=== PATIENT | female | born 2000 | race Asian ===

== ENCOUNTER 2021-01-14 23:32 | Emergency (ER) | payer OTHER, SELFPAY ==
[2021-01-14 23:59] VITALS: BP 140/80; PULSE 78; RESP 18; TEMP 37.4; O2SAT 100; BMI 28.1
--- NOTE | 2021-01-15 00:23 | ED.NAVMDI ---
HPI - Nausea/Vomiting/Diarrhea General Chief complaint: Nausea/Vomiting/Diarrhea Stated complaint: DEHYDRATION/VOMITING Time Seen by Provider: 01/14/21 23:46 Source: patient Mode of arrival: ambulatory History of Present Illness HPI Narrative: This is a 20-year-old female who presents with nausea and vomiting since this morning upon awakening. She is concerned that she probably had contaminated food yesterday, but does endorse she has smoked marijuana in been seen here in this emergency department multiple times for similar presentation. In addition, patient sources she has also used cocaine. She denies any diarrhea, fevers but states she has had chills during the vomiting and denies any urinary pain/burning/frequency. Related Data Previous Rx's Medication Instructions Recorded ondansetron HCl [Zofran] 4 mg PO Q6H PRN 2 Days #7 tab 01/15/21 Allergies Allergy/AdvReac Type Severity Reaction Status Date / Time No Known Allergies Allergy Verified 09/14/20 13:26 Review of Systems Review of Systems: Pertinent positives and negatives as stated in HPI 10 point review of systems is otherwise negative. PMFSH Past Medical History Source: nursing notes reviewed Surgical History No pertinent past surgical history Family History Family History Father Medical history unknown Mother Medical history unknown Maternal Aunt Breast cancer Social History Social History Advance Directives: No Physical Exam Vital Signs: Vital Signs: Last Vital Signs Temp 99.4 F 01/14/21 23:59 Pulse 98 01/15/21 03:35 Resp 18 01/15/21 03:35 BP 110/55 L 01/15/21 03:35 Pulse Ox 99 01/15/21 03:35 Body Mass Index 28.1 VITAL SIGNS: Reviewed. GENERAL: Well developed, well nourished, in no acute distress. HEAD: Normocephalic/atraumatic, EYES: PERRLA, EOMI NOSE: Nares patent bilateral OROPHARYNX: no oral lesions noted, posterior pharynx clear, mucosa is moist NECK: Supple, no adenopathy LUNGS: Normal breath sounds. No adventitious sounds or accessory muscle use. SpO2<100> CARDIOVASCULAR: Regular rate and rhythm without noted murmurs ABDOMEN: Soft, mild tenderness in the right lower quadrant/suprapubic area without rebound, non-distended with bowel sounds. NEUROLOGIC: Alert and oriented x 4. Course Course Course Narrative: This is a 20-year-old female with history and clinical presentation consistent with cyclical vomiting, but will rule out alternative infectious/metabolic etiologies. Although patient is having right lower quadrant discomfort will re-evaluate after receiving fluid resuscitation. Review of all investigations and re-evaluation the right lower quadrant discomfort has improved and there are no acute findings other than stress response leukocytosis. After significant fluid hydration and treatment with antiemetics patient has improved and is tolerating oral intake. She is now stable for discharge to home with a prescription for Zofran instructions to continue her hydration. MDM - Nausea/Vomiting/Diarrhea Lab Data Result diagrams: 01/15/21 00:25 01/15/21 00:25 Labs: Lab Results 01/15/21 01/15/21 01/15/21 Range/Units 00:25 00:25 01:31 WBC 16.2 H (4.8-10.8) X10*3/uL RBC 4.07 L (4.20-5.50) X10*6/uL Hgb 12.9 (12.0-16.0) g/dl Hct 37.6 (37-47) % MCV 92.4 (80-98) fL MCH 31.7 (27.0-33.0) pg MCHC 34.3 (31.0-35.0) g/dl RDW 12.9 (11.0-16.0) % Plt Count 222 (160-400) X10*3/uL MPV 11.4 (9.4-12.3) fL Immature Gran % (Auto) 0.2 (0.0-0.4) % Neut % (Auto) 86.7 H (45-73) % Lymph % (Auto) 8.5 L (20-40) % [place] % (Auto) 4.5 (2-11) % Eos % (Auto) 0.0 (0-4) % Baso % (Auto) 0.1 (0-2) % Lymph # (Auto) 1.4 (1.2-4.9) X10*3/uL [place] # (Auto) 0.7 (0.1-1.2) X10*3/uL Eos # (Auto) 0.0 (0.0-0.4) X10*3/uL Baso # (Auto) 0.0 (0.0-0.2) X10*3/uL Abs Immat Gran (auto) 0.04 H (0.00-0.03) X10*3/uL Absolute Neuts (auto) 14.0 H (2.0-8.3) X10*3/uL Absolute Nucleated RBC 0.000 (0.0-0.012) X10*3/uL Nucleated RBC % (auto) 0.0 (0.0-0.2) /100WBC Sodium 141 (135-145) mmol/L Potassium 3.7 (3.3-5.1) mmol/L Chloride 104 (96-108) mmol/L Carbon Dioxide 19 L (22-29) mmol/L Anion Gap 22 H (12-20) BUN 13 (9-16) mg/dL Creatinine 0.82 (0.5-1.4) mg/dL Estim Creat Clear Calc 118.2 Estimated GFR > 60 Random Glucose 121 H (60-115) mg/dL Calcium 9.8 (8.4-10.2) mg/dL Total Bilirubin 0.7 (0.0-1.0) mg/dL AST 16 (5-31) U/L ALT < 6 (0-31) U/L Alkaline Phosphatase 58 (39-117) U/L Total Protein 8.2 H (6.5-8.0) g/dL Albumin 4.8 (3.5-5.0) g/dL Lipase 12 (8-78) U/L Urine Color DARK YELLOW Urine Appearance HAZY Urine pH 8.0 (5.0-8.0) Ur Specific [place] 1.010 (1.005-1.025) Urine Protein 1+ H (NEG-TRACE) MG/DL Urine Glucose (UA) NEG (NEG) MG/DL Urine Ketones >=80 (NEG) MG/DL Urine Blood TRACE (NEG) Urine Nitrite NEG (NEG) Ur Leukocyte Esterase NEG (NEG) Urine RBC 1-4 (0) /HPF Urine WBC 0-2 (0-4) /HPF Ur Squamous Epith Cells 2+ /LPF Urine Bacteria 1+ /LPF Urine Test (NEGATIVE) 01/15/21 Range/Units 01:31 WBC (4.8-10.8) X10*3/uL RBC (4.20-5.50) X10*6/uL Hgb (12.0-16.0) g/dl Hct (37-47) % MCV (80-98) fL MCH (27.0-33.0) pg MCHC (31.0-35.0) g/dl RDW (11.0-16.0) % Plt Count (160-400) X10*3/uL MPV (9.4-12.3) fL Immature Gran % (Auto) (0.0-0.4) % Neut % (Auto) (45-73) % Lymph % (Auto) (20-40) % [place] % (Auto) (2-11) % Eos % (Auto) (0-4) % Baso % (Auto) (0-2) % Lymph # (Auto) (1.2-4.9) X10*3/uL [place] # (Auto) (0.1-1.2) X10*3/uL Eos # (Auto) (0.0-0.4) X10*3/uL Baso # (Auto) (0.0-0.2) X10*3/uL Abs Immat Gran (auto) (0.00-0.03) X10*3/uL Absolute Neuts (auto) (2.0-8.3) X10*3/uL Absolute Nucleated RBC (0.0-0.012) X10*3/uL Nucleated RBC % (auto) (0.0-0.2) /100WBC Sodium (135-145) mmol/L Potassium (3.3-5.1) mmol/L Chloride (96-108) mmol/L Carbon Dioxide (22-29) mmol/L Anion Gap (12-20) BUN (9-16) mg/dL Creatinine (0.5-1.4) mg/dL Estim Creat Clear Calc Estimated GFR Random Glucose (60-115) mg/dL Calcium (8.4-10.2) mg/dL Total Bilirubin (0.0-1.0) mg/dL AST (5-31) U/L ALT (0-31) U/L Alkaline Phosphatase (39-117) U/L Total Protein (6.5-8.0) g/dL Albumin (3.5-5.0) g/dL Lipase (8-78) U/L Urine Color Urine Appearance Urine pH (5.0-8.0) Ur Specific [place] (1.005-1.025) Urine Protein (NEG-TRACE) MG/DL Urine Glucose (UA) (NEG) MG/DL Urine Ketones (NEG) MG/DL Urine Blood (NEG) Urine Nitrite (NEG) Ur Leukocyte Esterase (NEG) Urine RBC (0) /HPF Urine WBC (0-4) /HPF Ur Squamous Epith Cells /LPF Urine Bacteria /LPF Urine Test NEGATIVE (NEGATIVE) Discharge Plan Discharge Clinical Impression: Marijuana use Nausea & vomiting Qualifiers: Vomiting type: unspecified Vomiting Intractability: non-intractable Qualified Code(s): R11.2 - Nausea with vomiting, unspecified Patient Disposition: Home, Self-Care Instructions: Acute Nausea and Vomiting (ED) Additional Instructions: 1. You have been provided with a prescription for Zofran, this is an antinausea medication, should go ahead and take this as needed to control any nausea symptoms the next 24 hours to assist in your continued hydration. 2. Please follow-up with your primary care provider. Do not hesitate to return to the emergency department if you experience any acute worsening of your symptoms. Prescriptions: New ondansetron HCl [Zofran] 4 mg tablet 4 mg PO Q6H PRN (Reason: nausea and vomiting) 2 Days Qty: 7 RF: 0 Referrals: Physician,Unknown [Primary Care Provider] - 2 days
[2021-01-15 00:30] LABS: Basophils Percent Auto 0.1 % (0-2); Hematocrit 37.6 % (37-47); Hemoglobin 12.9 g/dl (12.0-16.0); Imm Gran Abs Auto 0.04 X10*3/uL (0.00-0.03); Imm Gran Pct Auto 0.2 % (0.0-0.4); Lymphocytes Absolute Auto 1.4 X10*3/uL (1.2-4.9); Lymphocytes Percent Auto 8.5 % (20-40); MANUAL DIFF FLAG NO; Mean Corpuscular HGB Conc 34.3 g/dl (31.0-35.0); Mean Corpuscular Hemoglobin 31.7 pg (27.0-33.0); Mean Corpuscular Volume 92.4 fL (80-98); Mean Platelet Volume 11.4 fL (9.4-12.3); Monocytes Absolute Auto 0.7 X10*3/uL (0.1-1.2); Monocytes Percent Auto 4.5 % (2-11); Neutrophils Percent Auto 86.7 % (45-73); Platelet Count 222 X10*3/uL (160-400); Red Blood Count 4.07 X10*6/uL (4.20-5.50); Red Cell Distribution Width 12.9 % (11.0-16.0); White Blood Count 16.2 X10*3/uL (4.8-10.8)
[2021-01-15] MEDS: ondansetron HCL 4 MG/2 ML VIAL IVPUSH (00:43)
[2021-01-15] MEDS: 0.9 % Sodium Chloride 1,000 ML 999 ML IV ×2 (00:43→01:39)
[2021-01-15 01:07] LABS: Alanine Aminotransferase < 6 U/L (0-31); Albumin Level 4.8 g/dL (3.5-5.0); Alkaline Phosphatase 58 U/L (39-117); Anion Gap 22 (12-20); Aspartate Amino Transferase 16 U/L (5-31); Bilirubin Total 0.7 mg/dL (0.0-1.0); Blood Urea Nitrogen 13 mg/dL (9-16); Calcium 9.8 mg/dL (8.4-10.2); Carbon Dioxide 19 mmol/L (22-29); Chloride 104 mmol/L (96-108); Creatinine Clr Calc Pharmacy 118.2; Estimated Glomerular Filt Rate > 60; Glucose Random 121 mg/dL (60-115); Lipase 12 U/L (8-78); Potassium 3.7 mmol/L (3.3-5.1); Sodium 141 mmol/L (135-145); Total Protein 8.2 g/dL (6.5-8.0)
[2021-01-15] MEDS: diphenhydrAMINE HCL 50 MG/ML VIAL 25 MG IVPUSH (01:40)
[2021-01-15] MEDS: Metoclopramide HCl 10 MG/2 ML VIAL IVPUSH (01:40)
[2021-01-15 01:42] LABS: Glucose Urine UA NEG (NEG); Leukocyte Esterase Urine NEG (NEG); Nitrite Urine NEG (NEG); Urine Blood TRACE (NEG); Urine Ketones >=80 MG/DL (NEG); Urine Protein 1+ MG/DL (NEG-TRACE)
--- NOTE | 2021-01-15 01:42 | PC.NURSE ---
pt shivering, nausea, abd discomfort. pt treated with ns 1L. benadry, reglan iv. pt has stopped shivering, and is relaxed now.
[2021-01-15 01:50] LABS: Appearance Urine HAZY; Color Urine DARK YELLOW
[2021-01-15 01:55] LABS: Bacteria Urine 1+ /LPF; Squamous Epithelial Cell Urine 2+ /LPF; Urine Pregnancy NEGATIVE (NEGATIVE); WBC Urine 0-2 /HPF (0-4)
[2021-01-15 01:56] LABS: UPreg QC Valid YES
[2021-01-15] MEDS: Magnesium Hydrox/Alum Hydrox 30 ML ORAL.SUSP PO (03:34)
[2021-01-15] MEDS: Lidocaine HCl Viscous 2 % 15 ML SOLUTION 10 ML MUCOUS MEM (03:34)
[2021-01-15 03:35] VITALS: BP 110/55; PULSE 98; RESP 18; O2SAT 99
== END 2021-01-15 03:53 | disposition home or self-care (01) ==
PROVIDERS: Emergency Provider Student in an Organized Health Care Education/Training Program
DX: R11.2 Nausea with vomiting, unspecified (principal); F12.90 Cannabis use, unspecified, uncomplicated
CPT/HCPCS: 36415; 80053; 81001; 81025; 83690; 85025; 96361; 96374; 96375; 99284; J1200; J2405; J2765

== ENCOUNTER 2021-01-16 06:53 | Emergency (ER) | payer OTHER, SELFPAY ==
--- NOTE | ~2021-01-16 | CT_ITS ---
EXAMINATION: CT ABDOMEN AND PELVIS WITH CONTRAST CLINICAL INFORMATION: Question appendicitis COMPARISON: CT abdomen pelvis 10/10/2016 TECHNIQUE: Multidetector volumetric images were obtained from the superior aspect of the liver through the pubic symphysis following administration 85 mL of Omnipaque 350 intravenous contrast. Sagittal and coronal reformatted images were obtained on the technologist's workstation. This CT examination was performed using dose optimization techniques as appropriate, variously including the following: *Automated exposure control *Adjustment of mA and/or kV according to patient size (this includes techniques or standardized protocols for targeted exams where dose is matched to indication/reason for exam; i.e. extremities or head) *Use of iterative reconstruction technique DLP: 465 mGy-cm FINDINGS: Visualized lung bases are well aerated. The liver demonstrates normal size, contour and attenuation. The gallbladder is normal in appearance. The pancreas, spleen and adrenal glands are unremarkable. Symmetrically enhancing kidneys. No hydronephrosis bilaterally. Tiny hiatal hernia. The stomach is relatively decompressed. Normal caliber loops of small and large bowel. The appendix is folded on itself and therefore not optimally characterized, however, it does not appear dilated, measuring 5 to 6 mm in diameter at maximum. There is no asymmetric mesenteric stranding in the right lower quadrant. I do not appreciate any adjacent enlarged lymph nodes. The bladder is normal in appearance. Unremarkable CT appearance of the uterus. No gross free pelvic fluid. No inguinal lymphadenopathy. No acute osseous abnormality. CT/CT abdomen pelvis w con IMPRESSION: The appendix is folded on itself and therefore not optimally characterized, however, it does not appear dilated, measuring 5 to 6 mm in diameter at maximum. There is no asymmetric mesenteric stranding in the right lower quadrant. I do not appreciate any adjacent enlarged lymph nodes. Clinical correlation recommended.
[2021-01-16 07:13] VITALS: BP 134/78; PULSE 65; RESP 17; TEMP 36.8; O2SAT 99; BMI 28.1
--- NOTE | 2021-01-16 07:49 | ED_ITS ---
HPI - Nausea/Vomiting/Diarrhea General Chief complaint: Abdominal Pain Stated complaint: ?APPENDICITIS Time Seen by Provider: 01/16/21 07:41 History of Present Illness HPI Narrative: This is a 20 years old of female presented to the emergency department with the chief complaint of nausea, vomiting, abdominal pain. The patient was seen yesterday in the emergency department she was given fluids discharge home with diagnosis of cyclic vomiting syndrome, [place] [id number]. She states that she is not any better, she cannot keep anything down. Onset (ago): day(s) (Two days ago) Related Data Previous Rx's Medication Instructions Recorded ondansetron HCl [Zofran] 4 mg PO Q6H PRN 2 Days #7 tab 01/15/21 omeprazole magnesium [Prilosec] 20 mg PO DAILY #30 ea 01/16/21 ondansetron HCl [Zofran] 4 mg PO Q8H PRN #14 tab 01/16/21 Allergies Allergy/AdvReac Type Severity Reaction Status Date / Time No Known Allergies Allergy Verified 01/16/21 07:18 Review of Systems Review of Systems: Yes all other systems are reviewed and are negative [facility] Past Medical History Surgical History No pertinent past surgical history Family History Family History Father Medical history unknown Mother Medical history unknown Maternal Aunt Breast cancer Social History Social History Alcohol intake: never Smoking Status: Never smoker Smoked in Last 30 Days: No Use of substances other than those prescribed or required for medical reasons: Yes Substance Use Type: Marijuana Advance Directives: No Advance Directives Information Provided: Yes Physical Exam Vital Signs: Vital Signs: Last Vital Signs Temp 99.2 F 01/16/21 10:10 Pulse 70 01/16/21 10:10 Resp 16 01/16/21 10:10 BP 105/63 01/16/21 10:53 Pulse Ox 99 01/16/21 10:10 Body Mass Index 28.1 Const: Other: She is awake alert oriented in not acute distress she appear anxious HENMT: Other: Examination of the head eyes nose mouth and throat within normal limit Neck: Other: Neck is supple full range of motion Chest: Other: Lungs are clear during auscultation Resp: Effort & Inspection: normal respiratory effort Cardio: Other: Heart examination shows a regular rate and rhythm a no murmur GI: Other: Abdomen is soft not tender, no guarding no rebound the Skin: Other: Skin is moist Neuro: Other: She is awake alert oriented times 3 gait is normal a cranial nerve 2-12 are intact Extrem: Other: No edema Psych: Other: Anxious appearing Course Reevaluation(s) Reevaluation #1: Patient is feeling better at this time a labs are within normal limit and leukocytosis from yesterday improved. CT scan of the abdomen and pelvis the appendix was no clearly identified about she has no inflammatory changes in the right lower quadrant and no dilatation of the appendix. Time: 10:07 Time: 10:10 Reevaluation #3: I discussed the case with surgery DR Overton I reviewed the labs and the CT scan of the abdomen and pelvis report it is reasonable to discharge the patient home with abdominal pain instruction ;unlikely acute appendicitis given the fact that the white cell count is coming down and given the fact that the CT does not show inflammatory changes in the right lower quadrant MDM - Nausea/Vomiting/Diarrhea Lab Data Result diagrams: 01/16/21 07:53 01/16/21 07:53 Labs: Lab Results 01/16/21 01/16/21 Range/Units 07:53 07:53 WBC 8.2 (4.8-10.8) X10*3/uL RBC 3.70 L (4.20-5.50) X10*6/uL Hgb 11.8 L (12.0-16.0) g/dl Hct 35.2 L (37-47) % MCV 95.1 (80-98) fL MCH 31.9 (27.0-33.0) pg MCHC 33.5 (31.0-35.0) g/dl RDW 13.2 (11.0-16.0) % Plt Count 197 (160-400) X10*3/uL MPV 11.0 (9.4-12.3) fL Immature Gran % (Auto) 0.2 (0.0-0.4) % Neut % (Auto) 70.2 (45-73) % Lymph % (Auto) 18.7 L (20-40) % [place] % (Auto) 10.1 (2-11) % Eos % (Auto) 0.6 (0-4) % Baso % (Auto) 0.2 (0-2) % Lymph # (Auto) 1.5 (1.2-4.9) X10*3/uL [place] # (Auto) 0.8 (0.1-1.2) X10*3/uL Eos # (Auto) 0.1 (0.0-0.4) X10*3/uL Baso # (Auto) 0.0 (0.0-0.2) X10*3/uL Abs Immat Gran (auto) 0.02 (0.00-0.03) X10*3/uL Absolute Neuts (auto) 5.8 (2.0-8.3) X10*3/uL Absolute Nucleated RBC 0.000 (0.0-0.012) X10*3/uL Nucleated RBC % (auto) 0.0 (0.0-0.2) /100WBC Sodium 140 (135-145) mmol/L Potassium 3.2 L (3.3-5.1) mmol/L Chloride 105 (96-108) mmol/L Carbon Dioxide 23 (22-29) mmol/L Anion Gap 15 (12-20) BUN 13 (9-16) mg/dL Creatinine 0.79 (0.5-1.4) mg/dL Estim Creat Clear Calc 122.7 Estimated GFR > 60 Random Glucose 110 (60-115) mg/dL Calcium 8.6 D (8.4-10.2) mg/dL Total Bilirubin 1.0 (0.0-1.0) mg/dL AST 13 (5-31) U/L ALT < 6 (0-31) U/L Alkaline Phosphatase 46 D (39-117) U/L Total Protein 7.1 (6.5-8.0) g/dL Albumin 4.2 (3.5-5.0) g/dL Lipase 10 (8-78) U/L Beta HCG, Quant < 2 mIU/mL Imaging Data CT scan - abdomen: Radiologist's impression: pelvis w con IMPRESSION: The appendix is folded on itself and therefore not optimally characterized, however, it does not appear dilated, measuring 5 to 6 mm in diameter at maximum. There is no asymmetric mesenteric stranding in the right lower quadrant. I do not appreciate any adjacent enlarged lymph nodes. Clinical correlation recommended. Discharge Plan Discharge Clinical Impression: Abdominal pain in female Patient Disposition: Home, Self-Care Instructions: Abdominal Pain (ED) Additional Instructions: Please follow-up with your primary care physician on Monday, clear liquid diet times 24 hours, return to the emergency department if you worsened ,vomiting, fever any concern Prescriptions: New ondansetron HCl [Zofran] 4 mg tablet 4 mg PO Q8H PRN (Reason: nausea and vomiting) Qty: 14 RF: 0 Prilosec 10 mg susp,delayed release for recon 20 mg PO DAILY Qty: 30 RF: 0 No Action ondansetron HCl [Zofran] 4 mg tablet 4 mg PO Q6H PRN (Reason: nausea and vomiting) 2 Days Qty: 7 RF: 0 Interventions: ED Discharge Assessment Last Done: 01/16/21 10:54 Discharge Date/Time: 01/16/21 10:54
[2021-01-16 07:56] LABS: MANUAL DIFF FLAG NO
[2021-01-16 08:00] LABS: Basophils Percent Auto 0.2 % (0-2); Eosinophils Absolute Auto 0.1 X10*3/uL (0.0-0.4); Eosinophils Percent Auto 0.6 % (0-4); Hematocrit 35.2 % (37-47); Hemoglobin 11.8 g/dl (12.0-16.0); Imm Gran Abs Auto 0.02 X10*3/uL (0.00-0.03); Imm Gran Pct Auto 0.2 % (0.0-0.4); Lymphocytes Absolute Auto 1.5 X10*3/uL (1.2-4.9); Lymphocytes Percent Auto 18.7 % (20-40); Mean Corpuscular HGB Conc 33.5 g/dl (31.0-35.0); Mean Corpuscular Hemoglobin 31.9 pg (27.0-33.0); Mean Corpuscular Volume 95.1 fL (80-98); Monocytes Absolute Auto 0.8 X10*3/uL (0.1-1.2); Monocytes Percent Auto 10.1 % (2-11); Neutrophils Absolute Auto 5.8 X10*3/uL (2.0-8.3); Neutrophils Percent Auto 70.2 % (45-73); Platelet Count 197 X10*3/uL (160-400); Red Cell Distribution Width 13.2 % (11.0-16.0); White Blood Count 8.2 X10*3/uL (4.8-10.8)
[2021-01-16] MEDS: 0.9 % Sodium Chloride 1,000 ML 999 ML IVCONT (08:04)
[2021-01-16 08:05] VITALS: BP 119/62
[2021-01-16] MEDS: ondansetron HCL 4 MG/2 ML VIAL IVPUSH (08:05)
[2021-01-16] MEDS: Morphine Sulfate 4 MG/ML CARTRIDGE IVPUSH ×2 (08:05→10:12)
[2021-01-16 08:30] LABS: Alanine Aminotransferase < 6 U/L (0-31); Albumin Level 4.2 g/dL (3.5-5.0); Alkaline Phosphatase 46 U/L (39-117); Anion Gap 15 (12-20); Aspartate Amino Transferase 13 U/L (5-31); Blood Urea Nitrogen 13 mg/dL (9-16); Calcium 8.6 mg/dL (8.4-10.2); Carbon Dioxide 23 mmol/L (22-29); Chloride 105 mmol/L (96-108); Creatinine Clr Calc Pharmacy 122.7; Estimated Glomerular Filt Rate > 60; Glucose Random 110 mg/dL (60-115); HCG Quantitative < 2 mIU/mL; Lipase 10 U/L (8-78); Potassium 3.2 mmol/L (3.3-5.1); Sodium 140 mmol/L (135-145); Total Protein 7.1 g/dL (6.5-8.0)
[2021-01-16] MEDS: iohexoL 350 MG/ML 75 ML INFUS..BTL IV (09:24)
[2021-01-16 10:10] VITALS: BP 113/54; PULSE 70; RESP 16; TEMP 37.3; O2SAT 99
[2021-01-16 10:53] VITALS: BP 105/63
== END 2021-01-16 10:54 | disposition home or self-care (01) ==
PROVIDERS: Emergency Provider Emergency Medicine
DX: R10.9 Unspecified abdominal pain (principal); Z79.899 Other long term (current) drug therapy
CPT/HCPCS: 36415; 74177; 80053; 83690; 84702; 85025; 96365; 96375; 96376; 99284; J2270; J2405; Q9967

== ENCOUNTER 2021-11-10 06:47 | Inpatient (IN) | payer OTHER, SELFPAY ==
[2021-11-10] VITALS (15 sets, daily range): BP systolic 112–145; BP diastolic 56–91; PULSE 19–102; RESP 16–22; TEMP 36.4–37.2; O2SAT 97–100; BMI 28.1
--- NOTE | ~2021-11-10 | CT_ITS ---
EXAMINATION: CT ABDOMEN AND PELVIS WITHOUT CONTRAST CLINICAL INFORMATION: Right flank pain COMPARISON: Previous abdominal and pelvic CT scan recent December 2020 TECHNIQUE: Multidetector volumetric imaging was performed from the superior aspect of the liver through the pubic symphysis. Sagittal and coronal reformatted images were obtained on the technologist's workstation. This CT examination was performed using dose optimization techniques as appropriate, variously including the following: *Automated exposure control *Adjustment of mA and/or kV according to patient size (this includes techniques or standardized protocols for targeted exams where dose is matched to indication/reason for exam; i.e. extremities or head) *Use of iterative reconstruction technique DLP: 511 mGy-cm FINDINGS: LUNG BASES: The visualized lung bases are unremarkable. LIVER, GALLBLADDER, AND BILIARY TREE: The liver is normal in size, shape, and attenuation. No focal hepatic lesion or biliary ductal dilatation is present. The gallbladder is unremarkable with no evidence of radiopaque gallstones, gallbladder wall thickening, or obvious pericholecystic inflammatory changes. PANCREAS: Unremarkable. SPLEEN: Unremarkable. ADRENAL GLANDS: Unremarkable. KIDNEYS AND URETERS: The kidneys are normal in size, shape, and attenuation. No hydronephrosis, hydroureter, or calculi seen. No perinephric stranding. BLADDER: Unremarkable. GASTROINTESTINAL TRACT: The small and large bowel are unremarkable. The appendix is upper normal in size measuring 7 to 8 mm in diameter. The periappendiceal fat is normal. No periappendiceal fluid is seen. The stomach is unremarkable. ABDOMINAL WALL: No significant hernia is appreciated. LYMPH NODES: Normal. VASCULAR: Unremarkable. PELVIC VISCERA: Unremarkable. OSSEOUS STRUCTURES: Unremarkable. CT/CT abdomen pelvis wo con IMPRESSION: No stone or hydronephrosis seen. Upper normal-size appendix. Early appendicitis cannot be excluded and clinical correlation is recommended. Fleischner guidelines were followed.
--- NOTE | 2021-11-10 08:50 | ED.ABDPAIN ---
HPI - Abdominal Pain General Chief Complaint: Abdominal Pain Stated Complaint: abdominal pain Time Seen by Provider: 11/10/21 08:42 Source: patient Mode of arrival: ambulatory Limitations: no limitations History of Present Illness HPI narrative: this is a 21 years old patient presented to the emergency department with right flank pain since early this morning with a complaint of nausea and vomiting MD elicited complaint: flank pain and other (rt) Pertinent past history: none Onset (ago): hour(s) (5) Pain Consistency: constant Quality: aching Radiation: R flank Migration to: RLQ Exacerbating factors: nothing Relieving factors: nothing Associated symptoms: nausea and vomiting Related Data Home Medications Medication Instructions Recorded Confirmed No Known Home Meds 11/10/21 11/10/21 Allergies Allergy/AdvReac Type Severity Reaction Status Date / Time No Known Allergies Allergy Verified 01/16/21 07:18 Review of Systems Review of Systems Yes all other systems are reviewed and are negative Cardiovascular: Reports no additional cardiovascular complaints Gastrointestinal: Reports abdominal pain, Reports nausea and Reports vomiting Musculoskeletal: Reports no additional musculoskeletal complaints Physical Exam Vital Signs: Vital Signs: Last Vital Signs Temp 98.1 F 11/10/21 11:08 Pulse 82 11/10/21 11:08 Resp 16 11/10/21 11:08 BP 122/84 11/10/21 11:08 Pulse Ox 100 11/10/21 11:08 BMI result Body Mass Index 28.1 Const: General: cooperative and comfortable Nutritional Appearance: average body habitus Orientation/consciousness: patient oriented x3 Limitations: no limitations HENMT: Head: Yes normal to inspection Face and sinus: Yes normal facial exam Mouth: Normal oral and palatal mucosa present Neck: Neck: Yes normal visual inspection and Yes full ROM Chest: Chest palpation & inspection: normal inspection of the chest Resp: Effort & Inspection: normal respiratory effort Auscultation: clear to auscultation bilaterally Cardio: Jugular venous distension: no JVD Rate: regular rate Rhythm: regular rhythm GI: Inspection: Yes normal to inspection and Yes other (tenderness rt flank) Palpation (GI): Soft to palpation and Tenderness to palpation present (GI) (rt flank) Skin: General skin exam: no rashes or lesions noted, elasticity normal and turgor normal Lesions: no lesions Rashes: no rashes Neuro: General: patient oriented x3 Course Reevaluation(s) Reevaluation #1: improving CT scan showed enlargement of the appendix surgery was consulted Dr. Quinonez so the patient he will take the patient to the OR MDM - Abdominal Pain Lab Data Result diagrams: 11/10/21 09:13 11/10/21 09:13 Labs: Lab Results 11/10/21 11/10/21 11/10/21 Range/Units 09:12 09:12 09:13 WBC 20.6 H (4.8-10.8) X10*3/uL RBC 3.98 L (4.20-5.50) X10*6/uL Hgb 12.7 (12.0-16.0) g/dl Hct 37.8 (37.0-47.0) % MCV 95.0 (80.0-98.0) fL MCH 31.9 (27.0-33.0) pg MCHC 33.6 (31.0-35.0) g/dl RDW 12.0 (11.0-16.0) % Plt Count 262 (160-400) X10*3/uL MPV 11.0 (9.4-12.3) fL Immature Gran % (Auto) 0.4 (0.0-0.4) % Neut % (Auto) 83.4 H (45-73) % Lymph % (Auto) 8.5 L (20-40) % [place] % (Auto) 7.5 (2-11) % Eos % (Auto) 0.1 (0-4) % Baso % (Auto) 0.1 (0-2) % Lymph # (Auto) 1.7 (1.2-4.9) X10*3/uL [place] # (Auto) 1.5 H (0.1-1.2) X10*3/uL Eos # (Auto) 0.0 (0.0-0.4) X10*3/uL Baso # (Auto) 0.0 (0.0-0.2) X10*3/uL Abs Immat Gran (auto) 0.09 H (0.00-0.03) X10*3/uL Absolute Neuts (auto) 17.2 H (2.0-8.3) x10*3/uL Absolute Nucleated RBC 0.000 (0.0-0.012) X10*3/uL Nucleated RBC % (auto) 0.0 (0.0-0.2) /100WBC Smear Tech's Comments VERIFIED Sodium (135-145) mmol/L Potassium (3.3-5.1) mmol/L Chloride (96-108) mmol/L Carbon Dioxide (22-29) mmol/L Anion Gap (12-20) BUN (9-16) mg/dL Creatinine (0.5-1.4) mg/dL Estim Creat Clear Calc Estimated GFR Random Glucose (60-115) mg/dL Calcium (8.4-10.2) mg/dL Total Bilirubin (0.0-1.0) mg/dL Direct Bilirubin (0.0-0.5) mg/dL AST (5-31) U/L ALT (0-31) U/L Alkaline Phosphatase (39-117) U/L Total Protein (6.5-8.0) g/dL Albumin (3.5-5.0) g/dL Lipase (8-78) U/L Urine Color YELLOW Urine Appearance CLEAR Urine pH 5.5 (5.0-8.0) Ur Specific [place] 1.025 (1.005-1.025) Urine Protein NEG (NEG-TRACE) MG/DL Urine Glucose (UA) NEG (NEG) MG/DL Urine Ketones NEG (NEG) MG/DL Urine Blood TRACE (NEG) Urine Nitrite NEG (NEG) Ur Leukocyte Esterase NEG (NEG) Urine RBC 0-2 (0) /HPF Urine WBC 0 (0-4) /HPF Ur Squamous Epith Cells 1+ /LPF Urine Bacteria TRACE /LPF Urine Test NEGATIVE (NEGATIVE) 11/10/21 11/10/21 Range/Units 09:13 09:13 WBC (4.8-10.8) X10*3/uL RBC (4.20-5.50) X10*6/uL Hgb (12.0-16.0) g/dl Hct (37.0-47.0) % MCV (80.0-98.0) fL MCH (27.0-33.0) pg MCHC (31.0-35.0) g/dl RDW (11.0-16.0) % Plt Count (160-400) X10*3/uL MPV (9.4-12.3) fL Immature Gran % (Auto) (0.0-0.4) % Neut % (Auto) (45-73) % Lymph % (Auto) (20-40) % [place] % (Auto) (2-11) % Eos % (Auto) (0-4) % Baso % (Auto) (0-2) % Lymph # (Auto) (1.2-4.9) X10*3/uL [place] # (Auto) (0.1-1.2) X10*3/uL Eos # (Auto) (0.0-0.4) X10*3/uL Baso # (Auto) (0.0-0.2) X10*3/uL Abs Immat Gran (auto) (0.00-0.03) X10*3/uL Absolute Neuts (auto) (2.0-8.3) x10*3/uL Absolute Nucleated RBC (0.0-0.012) X10*3/uL Nucleated RBC % (auto) (0.0-0.2) /100WBC Smear Tech's Comments Sodium 139 (135-145) mmol/L Potassium 4.7 D (3.3-5.1) mmol/L Chloride 105 (96-108) mmol/L Carbon Dioxide 25 (22-29) mmol/L Anion Gap 14 (12-20) BUN 19 H (9-16) mg/dL Creatinine 0.78 (0.5-1.4) mg/dL Estim Creat Clear Calc 123.3 Estimated GFR > 60 Random Glucose 96 (60-115) mg/dL Calcium 9.6 D (8.4-10.2) mg/dL Total Bilirubin 0.4 (0.0-1.0) mg/dL Direct Bilirubin < 0.2 (0.0-0.5) mg/dL AST 31 D (5-31) U/L ALT 13 (0-31) U/L Alkaline Phosphatase 49 (39-117) U/L Total Protein 7.7 (6.5-8.0) g/dL Albumin 4.3 (3.5-5.0) g/dL Lipase 18 Cancelled (8-78) U/L Urine Color Urine Appearance Urine pH (5.0-8.0) Ur Specific [place] (1.005-1.025) Urine Protein (NEG-TRACE) MG/DL Urine Glucose (UA) (NEG) MG/DL Urine Ketones (NEG) MG/DL Urine Blood (NEG) Urine Nitrite (NEG) Ur Leukocyte Esterase (NEG) Urine RBC (0) /HPF Urine WBC (0-4) /HPF Ur Squamous Epith Cells /LPF Urine Bacteria /LPF Urine Test (NEGATIVE) Imaging Data CT scan - abdomen: Radiologist's impression: BLADDER: Unremarkable.? GASTROINTESTINAL TRACT: The small and large bowel are unremarkable. The appendix is upper normal in size measuring 7 to 8 mm in diameter. The periappendiceal fat is normal. No periappendiceal fluid is seen. The stomach is unremarkable. ABDOMINAL WALL: No significant hernia is appreciated.? LYMPH NODES: Normal. VASCULAR: Unremarkable. PELVIC VISCERA: Unremarkable.? OSSEOUS STRUCTURES: Unremarkable.? CT/CT abdomen pelvis wo con IMPRESSION: No stone or hydronephrosis seen. Upper normal-size appendix. Early appendicitis cannot be excluded and clinical correlation is recommended. ? Fleischner guidelines were followed. Dictated By: Rhonda De Paz MD Signed By: <Electronically signed by Rhonda De Paz MD in [place]> 11/10/21 1012 Discharge Plan Discharge Clinical Impression: Appendicitis, Acute appendicitis Patient Disposition: Admitted As Inpatient FOR[facility]LY [facility], [facility] Past Medical History Medical History Bipolar 1 disorder Schizophrenia Surgical History No pertinent past surgical history Family History Family History Father Medical history unknown Mother Medical history unknown Maternal Aunt Breast cancer Social History Social History Alcohol intake: never Substance Use Type: Marijuana Advance Directives: No Advance Directives Information Provided: No Patient : No
[2021-11-10] MEDS: 0.9 % Sodium Chloride 1,000 ML 999 ML IVCONT ×2 (09:19→11:04)
[2021-11-10] MEDS: ondansetron HCL 4 MG/2 ML VIAL IVPUSH ×2 (09:23→20:45)
[2021-11-10] MEDS: Ketorolac Tromethamine 30 MG/ML VIAL 15 MG IVPUSH (09:23)
[2021-11-10 09:27] LABS: Basophils Percent Auto 0.1 % (0-2); Eosinophils Percent Auto 0.1 % (0-4); Hematocrit 37.8 % (37.0-47.0); Hemoglobin 12.7 g/dl (12.0-16.0); Imm Gran Abs Auto 0.09 X10*3/uL (0.00-0.03); Imm Gran Pct Auto 0.4 % (0.0-0.4); Lymphocytes Absolute Auto 1.7 X10*3/uL (1.2-4.9); Lymphocytes Percent Auto 8.5 % (20-40); MANUAL DIFF FLAG SCAN; Mean Corpuscular HGB Conc 33.6 g/dl (31.0-35.0); Mean Corpuscular Hemoglobin 31.9 pg (27.0-33.0); Monocytes Absolute Auto 1.5 X10*3/uL (0.1-1.2); Monocytes Percent Auto 7.5 % (2-11); Neutrophils Absolute Auto 17.2 x10*3/uL (2.0-8.3); Neutrophils Percent Auto 83.4 % (45-73); Platelet Count 262 X10*3/uL (160-400); Red Blood Count 3.98 X10*6/uL (4.20-5.50); SCAN SMEAR FLAG 1; White Blood Count 20.6 X10*3/uL (4.8-10.8)
[2021-11-10 09:28] LABS: Appearance Urine CLEAR; Color Urine YELLOW; Glucose Urine UA NEG (NEG); Leukocyte Esterase Urine NEG (NEG); Nitrite Urine NEG (NEG); PH 5.5 (5.0-8.0); Specific Gravity - Urine 1.025 (1.005-1.025); UACC Culture Trigger NO; Urine Blood TRACE (NEG); Urine Ketones NEG (NEG); Urine Protein NEG (NEG-TRACE)
[2021-11-10 09:30] LABS: UPreg QC Valid YES; Urine Pregnancy NEGATIVE (NEGATIVE)
[2021-11-10 09:46] LABS: SLIDE REVIEW VERIFIED
[2021-11-10 09:49] LABS: Bacteria Urine TRACE /LPF; RBC Urine 0-2 /HPF (0); Squamous Epithelial Cell Urine 1+ /LPF; WBC Urine 0 /HPF (0-4)
[2021-11-10 09:50] LABS: Alanine Aminotransferase 13 U/L (0-31); Albumin Level 4.3 g/dL (3.5-5.0); Alkaline Phosphatase 49 U/L (39-117); Anion Gap 14 (12-20); Aspartate Amino Transferase 31 U/L (5-31); Bilirubin Direct < 0.2 mg/dL (0.0-0.5); Bilirubin Total 0.4 mg/dL (0.0-1.0); Blood Urea Nitrogen 19 mg/dL (9-16); Calcium 9.6 mg/dL (8.4-10.2); Carbon Dioxide 25 mmol/L (22-29); Chloride 105 mmol/L (96-108); Creatinine Clr Calc Pharmacy 123.3; Estimated Glomerular Filt Rate > 60; Glucose Random 96 mg/dL (60-115); Lipase 18 U/L (8-78); Potassium 4.7 mmol/L (3.3-5.1); Sodium 139 mmol/L (135-145); Total Protein 7.7 g/dL (6.5-8.0)
--- NOTE | 2021-11-10 11:18 | PHA.MEDREC ---
Pharmacy Consult ? Medication Reconciliation Pharmacy has completed the medication reconciliation. Reports she only uses weed and no medications. Neva Wilkinson, PharmD
--- NOTE | 2021-11-10 12:00 | P.HPGS_ITS ---
History of Present Illness History of Present Illness Date of Service: 11/11/21 Chief complaint: Appendicitis Narrative: Nell Zapata is a 21 year old female who came to the emergency room this morning because of right lower quadrant pain. She says this started about 05:00 o'clock this morning. She woke up with sudden ear pain on the right lower quadrant. She also describes some nausea at that time. She says she has not had any similar episodes in the past. In view of this pain, she came to the emergency room. She denies any diarrhea or any other GI complaints. She denies any dysuria. She says that she was fine when she went to bed last night. She continues to have right lower quadrant pain now. Review of Systems Constitutional: Constitutional: Denies chills and Denies fever(s) Cardiovascular: Cardiovascular: Denies chest pain, Denies dyspnea and Denies dyspnea on exertion Respiratory: Respiratory: Denies cough, Denies dyspnea and Denies dyspnea on exertion Gastrointestinal: Gastrointestinal: Denies hematochezia and Denies change in bowel habits Genitourinary: Genitourinary: Denies hematuria Musculoskeletal: Musculoskeletal: Denies back pain and Denies limited range of motion Neurologic: Denies focal weakness and Denies convulsions Psychiatric: Psychiatric: Denies depression and Denies mood swings PMFSH Past Medical History Medical History Bipolar 1 disorder Schizophrenia Family History Family History Father Medical history unknown Mother Medical history unknown Maternal Aunt Breast cancer Surgical History Surgical History No pertinent past surgical history Social History Social History Household Members: Significant Other Housing: Apartment Do you presently have visiting nurse or other home services: No Alcohol intake: never Patient Tobacco Use Status: Never used Tobacco Substance Use Type: Marijuana service: No Current occupational status: disabled Meds Allergies Allergy/AdvReac Type Severity Reaction Status Date / Time No Known Allergies Allergy Verified 01/16/21 07:18 Active Medications: Current Medications Lactated Ringer's (Lr) 1,000 mls @ 80 mls/hr IVCONT .[id number] [facility] Morphine Sulfate (Morphine Sulfate 4 Mg/Ml Cartridge) 3 mg IVPUSH Q3H PRN; Protocol PRN Reason: Pain, Severe (Pain Scale 7-10) Sodium Chloride (0.9 % Sodium Chloride Flush 3 Ml Syringe) 3 ml IVFLUSH QSHIFT IGANCIO Physical Exam Vital Signs: Vital Signs: Last Vital Signs Temp 98.1 F 11/10/21 11:08 Pulse 82 11/10/21 11:08 Resp 16 11/10/21 11:08 BP 122/84 11/10/21 11:08 Pulse Ox 100 11/10/21 11:08 BMI result Body Mass Index 28.1 GI: Other: Significantly tender on the right upper quadrant, no guarding or rebound Results Results Labs: Short CBC 11/10/21 Range/Units 09:13 WBC 20.6 H (4.8-10.8) X10*3/uL Hgb 12.7 (12.0-16.0) g/dl Hct 37.8 (37.0-47.0) % Plt Count 262 (160-400) X10*3/uL BMP 11/10/21 09:13 Sodium 139 Potassium 4.7 D Chloride 105 Carbon Dioxide 25 BUN 19 H Creatinine 0.78 Calcium 9.6 D Liver Function 11/10/21 Range/Units 09:13 Total Bilirubin 0.4 (0.0-1.0) mg/dL Direct Bilirubin < 0.2 (0.0-0.5) mg/dL AST 31 D (5-31) U/L ALT 13 (0-31) U/L Alkaline Phosphatase 49 (39-117) U/L Albumin 4.3 (3.5-5.0) g/dL Urine 11/10/21 11/10/21 Range/Units 09:12 09:12 Urine Color YELLOW Urine Appearance CLEAR Urine pH 5.5 (5.0-8.0) Ur Specific [place] 1.025 (1.005-1.025) Urine Protein NEG (NEG-TRACE) MG/DL Urine Glucose (UA) NEG (NEG) MG/DL Urine Test NEGATIVE (NEGATIVE) Abdomen CT scan report/results: report reviewed and image reviewed CT scan - pelvis: report reviewed and image reviewed Assessment and Plan (1) Acute appendicitis: Status: Acute She has significant pain and tenderness on the right lower quadrant. She also has leukocytosis. I reviewed her CAT scan with the radiologist Dr. De Paz and this shows that the appendix is upper normal suggestive of early appendicitis. I explained this to the patient. I reviewedwith her options including proceeding with appendectomy versus IV antibiotic treatment. I explained the technique of laparoscopic appendectomy along with the risks including but not limited to bleeding, infections, bowel injury, injury to the urinary tract, staple line leak, conversion to open, as well as benefits and alternatives . She wants to proceed with appendectomy instead of IV antibiotic treatment. She has given consent therefore. We will schedule her for laparoscopic appendectomy and possible open appendectomy today soon as the OR is available. Quality Stroke Does the patient have a stroke diagnosis?: No VTE Prior VTE?: No VTE Risk Level:: Surgical - low VTE Device Contraindication: Treatment Not Indicated VTE Drug Contraindication: Treatment Not Indicated Procedures Date of Service Date of Service: 11/10/21
[2021-11-10] MEDS: Morphine Sulfate 4 MG/ML CARTRIDGE 3 MG IVPUSH ×2 (12:09→20:46)
[2021-11-10 13:27] LABS: COVID-19 Test Negative (Negative)
--- NOTE | 2021-11-10 16:41 | P.CONAN_ITS ---
HPI - Anesthesia Eval Consult details Narrative: 21 F for lap appy seizure as a child GERD bipolar Schizophrenia PMFSH Active Problems Active Problems: All Active Problems (Updated 11/10/21 @ 11:20 by Gary Das) Appendicitis (Acute) Acute appendicitis (Acute) Past Medical History Medical History Bipolar 1 disorder Schizophrenia Functional capacity: independent ambulation Family History Family History Father Medical history unknown Mother Medical history unknown Maternal Aunt Breast cancer Family history of problems with anesthesia: No Surgical History Surgical History No pertinent past surgical history History of Problems with Anesthesia: No (no h/o anesthesia ) Social History Social History Alcohol intake: never Patient Tobacco Use Status: Current everyday Tobacco user Use of substances other than those prescribed or required for medical reasons: Yes Substance Use Type: Marijuana Are you DNR?: No Advance Directives: No Advance Directives Information Provided: No Advance Directives on File: No Patient : Yes Meds Allergies Allergy/AdvReac Type Severity Reaction Status Date / Time No Known Allergies Allergy Verified 01/16/21 07:18 Active Medications: Current Medications Lactated Ringer's (Lr) 1,000 mls @ 80 mls/hr IVCONT .[id number] [facility] Morphine Sulfate (Morphine Sulfate 4 Mg/Ml Cartridge) 3 mg IVPUSH Q3H PRN; Protocol PRN Reason: Pain, Severe (Pain Scale 7-10) Last Admin: 11/10/21 12:09 Dose: 3 mg Documented by: Sodium Chloride (0.9 % Sodium Chloride Flush 3 Ml Syringe) 3 ml IVFLUSH QSHIFT [facility] Home Medications Medication Instructions Recorded Confirmed Last Taken Type No Known Home Meds 11/10/21 11/10/21 Unknown History Exam Exam Date and Time: November 10, 2021 164 Height,Weight and Vital Signs: Height 5 ft 7 in Weight 81.647 kg Last Vital Signs Temp 99.0 F 11/10/21 14:11 Pulse 78 11/10/21 14:11 Resp 16 11/10/21 14:11 BP 132/85 11/10/21 14:11 Pulse Ox 97 11/10/21 14:11 Pertinent Lab Results Pertinent Lab Results: Laboratory Tests 11/10/21 11/10/21 11/10/21 09:12 09:12 09:13 WBC 20.6 H RBC 3.98 L Hgb 12.7 Hct 37.8 MCV 95.0 MCH 31.9 MCHC 33.6 RDW 12.0 Plt Count 262 MPV 11.0 Immature Gran % (Auto) 0.4 Neut % (Auto) 83.4 H Lymph % (Auto) 8.5 L [place] % (Auto) 7.5 Eos % (Auto) 0.1 Baso % (Auto) 0.1 Lymph # (Auto) 1.7 [place] # (Auto) 1.5 H Eos # (Auto) 0.0 Baso # (Auto) 0.0 Abs Immat Gran (auto) 0.09 H Absolute Neuts (auto) 17.2 H Absolute Nucleated RBC 0.000 Nucleated RBC % (auto) 0.0 Smear Tech's Comments VERIFIED Sodium Potassium Chloride Carbon Dioxide Anion Gap BUN Creatinine Estim Creat Clear Calc Estimated GFR Random Glucose Calcium Total Bilirubin Direct Bilirubin AST ALT Alkaline Phosphatase Total Protein Albumin Lipase Urine Color YELLOW Urine Appearance CLEAR Urine pH 5.5 Ur Specific [place] 1.025 Urine Protein NEG Urine Glucose (UA) NEG Urine Ketones NEG Urine Blood TRACE Urine Nitrite NEG Ur Leukocyte Esterase NEG Urine RBC 0-2 Urine WBC 0 Ur Squamous Epith Cells 1+ Urine Bacteria TRACE Urine Test NEGATIVE COVID-19 (CON[facility]IE) COVID-19 Clin Com 11/10/21 11/10/21 11/10/21 09:13 09:13 13:07 WBC RBC Hgb Hct MCV MCH MCHC RDW Plt Count MPV Immature Gran % (Auto) Neut % (Auto) Lymph % (Auto) [place] % (Auto) Eos % (Auto) Baso % (Auto) Lymph # (Auto) [place] # (Auto) Eos # (Auto) Baso # (Auto) Abs Immat Gran (auto) Absolute Neuts (auto) Absolute Nucleated RBC Nucleated RBC % (auto) Smear Tech's Comments Sodium 139 Potassium 4.7 D Chloride 105 Carbon Dioxide 25 Anion Gap 14 BUN 19 H Creatinine 0.78 Estim Creat Clear Calc 123.3 Estimated GFR > 60 Random Glucose 96 Calcium 9.6 D Total Bilirubin 0.4 Direct Bilirubin < 0.2 AST 31 D ALT 13 Alkaline Phosphatase 49 Total Protein 7.7 Albumin 4.3 Lipase 18 Cancelled Urine Color Urine Appearance Urine pH Ur Specific [place] Urine Protein Urine Glucose (UA) Urine Ketones Urine Blood Urine Nitrite Ur Leukocyte Esterase Urine RBC Urine WBC Ur Squamous Epith Cells Urine Bacteria Urine Test COVID-19 (CON[facility]IE) Negative COVID-19 Clin Com See Note Airway Mallampati Class: IV TM Dist: >3cm Neck ROM: Full Loose/Missing/Broken Teeth: Yes (Chipped ) Heart: rrr Lungs: bl breath sounds Assessment and Plan Final Anesthetic Review Family History of Problems with Anesthesia: No History of Problems with Anesthesia: No (no h/o anesthesia ) NPO: Yes ASA Class: II and Emergency Final Preanesthetic Review: Anes Risks/Benef Reviewed Patient Risk: Intermediate Procedure Risk: Intermediate Anesthetic Plan Anesthetic Plan: GA Disposition: Standard PACU
--- NOTE | 2021-11-10 18:25 | W.PM.OPN ---
Operative Note Operative Note Date of Service: 11/10/21 Narrative: Preop diagnosis: Acute appendicitis Postop diagnosis: Acute appendicitis Procedure: Laparoscopic appendectomy Surgeon: Tapan Quinonez MD habilitation assistant: gian Natarajan student The patient is a 21-year-old female with right lower quadrant pain starting early this morning. She had a CAT scan done showing upper normal appendix diameter. She had leukocytosis and was significant tender in the right lower quadrant. I explained to her that clinically, she did seem to have acute appendicitis. I explained to her options. She wanted to proceed with the appendectomy. She understood the risks, benefits, and alternatives . She was brought to the operating room placed supine on table under general anesthesia via endotracheal tube. A Roberts catheter inserted. The abdomen is prepped and draped in the usual sterile fashion. A surgical time-out was done. The patient received Cefotan 2 g IV preoperatively I made a short supraumbilical incision using blade 15. As this was carried down through the full-thickness of skin and subcutaneous fat to the fascia the fascia was incised. The peritoneum was entered. Through this incision a Bailee port introduced. Pneumoperitoneum was introduced to a pressure of 15 mm hg. From here on the rest of procedure was done under vision with the laparoscope. With laparoscopic visualization Iproceeded to insert a 5/12 port in the left lower quadrant via small stab incision. A 5 mm port was introduced via a small incision in the suprapubic margin at the midline. The patient was placed in head-down and [id number] position. We were using a 10 mm laparoscope, 0 degree. I placed graspers to the 2 working ports. I reflected the viscera away from the right lower quadrant. The cecum was seen. By following this we were able to see the appendix which was congested and slightly erythematous This was consistent with early appendicitis. The appendix was tortuous. I applied a grasper gently at the distal 3rd to put it on stretch. There was note of adhesions on the mid part of the appendix causing this to curl up upon itself. Furthermore, this was was also adherent to the lateral peritoneal attachments as well as in the retroperitoneal side I proceeded to use the LigaSure to divide the attachments to the lateral peritoneal wall as well as to allow as to reflect this cecum a little bit medially to achieve full exposure. I was then able to see the entire appendix. I divided more of the adhesions laterally and by doing so was able to completely see the base of the appendix. I also noted that there were adhesions from the medial side of the appendix to the small bowel loops. I carefully separate this using combination of blunt dissection with the [place] dissector, as well as the LigaSure. By doing so I was able to clearly expose the entire length of the appendix which was congested at the distal 2/3, as well as the attached mesoappendix. I continued to dissect the base of the appendix and proceeded to create a mesenteric window. I then positioned a 30 mmm Endo-JULIANN across the base. This was fired and the appendix was transected completely. I withdrew the stapler. I placed the appendix on stretch to define the entire mesoappendix. I used the LigaSure to divide across this mesoappendix. This was done until the entire appendix was completely . The appendix was retrieved through an endobag through the left lower quadrant incision I inserted all ports and re-insufflated I examined the area of dissection. There was note of 1 area with brisk oozing at the edge of the divided mesentery of the appendix. I was able to control this with the LigaSure. I made sure that this was away from the adjacent small bowel loops .Once this was controlled I proceeded examined all 4 quadrants. There was no other pathology seen. There was no evidence of any bowel injury. I examined the area of dissection carefully. There was note of good hemostasis. I irrigated and suctioned out the irrigant fluid. The patient was then placed in level position to allow me to suctioned the irrigant fluid on the right gutter Once this was achieved, I proceeded to examine again the entire abdominal cavity. I pulled the omentum to cover the right lower quadrant. I desufflated through the port sites and removed all ports under vision with laparoscopic visualization with the umbilical port removed last. The fascia of the umbilical incision was closed with a [id number] Dexon 0 stitch. Skin closure was achieved on all incisions using Dexon 4-0 subcuticular running sutures. Steri-Strips and dressings were applied. All incisions were infiltrated with Marcaine 0.5% for postop analgesia and the procedure was completed. The patient tolerated the procedure well. There were no complications noted. Initial and final counts of sponges and instruments were correct. Estimated blood loss was about 30 cc . The patient was extubated without difficulty and transferred to the recovery room with stable vital signs.
--- NOTE | 2021-11-10 18:36 | P.BOP_ITS ---
Brief Operative Note Date of Service: 11/10/21 Pre-op diagnosis: acute appendicitis Post-op diagnosis: same Procedure: laparoscopic appendectomy Surgeon: Tapan Quinonez MD Anesthesia: GETA Was an Sewage Disposal Engineer used for this Procedure?: No Estimated blood loss (mL): 30 Pathology: other ( appendix) Condition: stable Disposition: PACU
[2021-11-10] MEDS: fentaNYL citrate/PF 100 MCG/2 ML VIAL 50 MCG IVPUSH (18:39)
--- NOTE | 2021-11-10 18:45 | PM.EVENT ---
Event Note Date of Service: 11/10/21 Event Note: seen postop underwent uneventful lap appy seems to have good pain control stable VS explained to her and her mother procedure likely home tomorrow doing well postop
[2021-11-10] MEDS: 0.9 % Sodium Chloride Flush 3 ML SYRINGE IVFLUSH (20:46)
[2021-11-11] MEDS: Morphine Sulfate 4 MG/ML CARTRIDGE 3 MG IVPUSH (00:23)
[2021-11-11] MEDS: Lactated Ringers 1,000 ML 80 ML IVCONT (02:52)
[2021-11-11 03:43] VITALS: BP 129/70; PULSE 68; RESP 18; TEMP 36.2; O2SAT 97
[2021-11-11 05:02] LABS: Hematocrit 33.2 % (37.0-47.0); Hemoglobin 11.2 g/dl (12.0-16.0); Mean Corpuscular HGB Conc 33.7 g/dl (31.0-35.0); Mean Corpuscular Hemoglobin 31.5 pg (27.0-33.0); Mean Corpuscular Volume 93.5 fL (80.0-98.0); Platelet Count 226 X10*3/uL (160-400); Red Blood Count 3.55 X10*6/uL (4.20-5.50); White Blood Count 10.4 X10*3/uL (4.8-10.8)
[2021-11-11 07:36] VITALS: BP 122/59; PULSE 68; RESP 18; TEMP 36.8; O2SAT 100
[2021-11-11] MEDS: oxyCODONE HCl Immed Release 5 MG TABLET 10 MG PO (07:58)
--- NOTE | 2021-11-11 09:20 | PM.PNGS ---
Subjective Subjective Date of Service: 11/11/21 <Nuha Perry PA-C - Last Filed: 11/11/21 09:23> 11/11/21 <Tapan Quinonez MD - Last Filed: 11/11/21 10:09> Interval history: Very sore this morning after ambulating to bathroom. Denies nausea but has not had anything to eat. <Nuha Perry PA-C - Last Filed: 11/11/21 09:23> Physical Exam Vital Signs: Vital Signs: Last Vital Signs Temp 98.2 F 11/11/21 07:36 Pulse 68 11/11/21 07:36 Resp 18 11/11/21 07:36 BP 122/59 L 11/11/21 07:36 Pulse Ox 100 11/11/21 07:36 BMI result Body Mass Index 28.1 <NITHIN Wheeler Last Filed: 11/11/21 09:23> Const: General: no acute distress and alert <Nuha Perry PA-C - Last Filed: 11/11/21 09:23> Orientation/consciousness: patient oriented x3 <Nuha Perry PA-C - Last Filed: 11/11/21 09:23> GI: Inspection: No distended and Yes incision (dressings c/d/i) <Nuha Perry PA-C - Last Filed: 11/11/21 09:23> Palpation (GI): Soft to palpation, Tenderness to palpation present (GI) (incisional), no guarding and not rigid <Nuha Perry PA-C - Last Filed: 11/11/21 09:23> Percussion: Yes normal to percussion <Nuha Perry PA-C - Last Filed: 11/11/21 09:23> Skin: General skin exam: no rashes or lesions noted <NITHIN Wheeler Last Filed: 11/11/21 09:23> Neuro: General: patient oriented x3 <NITHIN Wheeler Last Filed: 11/11/21 09:23> Extrem: General: Yes no clubbing, cyanosis or edema <Nuha Perry PA-C - Last Filed: 11/11/21 09:23> Objective Data Active Medications Fentanyl (Fentanyl Citrate/Pf 100 Mcg/2 Ml Vial) 50 mcg IVPUSH Q5M PRN; Protocol PRN Reason: Pain, Severe (Pain Scale 7-10) Last Admin: 11/10/21 18:39 Dose: 50 mcg Documented by: LORI Lactated Ringer's (Lr) 1,000 mls @ 80 mls/hr IVCONT .[id number] [facility] Last Admin: 11/11/21 02:52 Dose: 80 mls/hr Documented by: LIANNE Promethazine HCl 12.5 mg/ (Sodium Chloride) 50.5 mls @ 202 mls/hr IV ONCE PRN PRN Reason: Nausea and Vomiting Acetaminophen (Ofirmev) 1,000 mg in 100 mls @ 400 mls/hr IV Q6H [facility] Stop: 11/11/21 12:59 Last Infusion: 11/11/21 06:20 Dose: 0 mls/hr Documented by: LIANNE Ibuprofen (Ibuprofen 600 Mg Tablet) 600 mg PO Q6H PRN PRN Reason: Pain, Moderate (Pain Scale 4-6 Ibuprofen (Ibuprofen 600 Mg Tablet) 600 mg PO Q6H PRN PRN Reason: Pain, Moderate (Pain Scale 4-6 Morphine Sulfate (Morphine Sulfate 4 Mg/Ml Cartridge) 3 mg IVPUSH Q3H PRN; Protocol PRN Reason: Pain, Severe (Pain Scale 7-10) Last Admin: 11/11/21 00:23 Dose: 3 mg Documented by: LIANNE Ondansetron HCl (Ondansetron Hcl 4 Mg/2 Ml Vial) 4 mg IVPUSH Q8H PRN PRN Reason: Nausea Ondansetron HCl (Ondansetron Hcl 4 Mg/2 Ml Vial) 4 mg IVPUSH Q8H PRN PRN Reason: nausea Oxycodone HCl (Oxycodone Hcl Immed Release 5 Mg Tablet) 10 mg PO Q4H PRN PRN Reason: Pain, Moderate (Pain Scale 4-6 Last Admin: 11/11/21 07:58 Dose: 10 mg Documented by: YISEL Oxycodone HCl (Oxycodone Hcl Immed Release 5 Mg Tablet) 10 mg PO Q4H PRN PRN Reason: Pain, Moderate (Pain Scale 4-6 Sodium Chloride (0.9 % Sodium Chloride Flush 3 Ml Syringe) 3 ml IVFLUSH QSHIFT [facility] Last Admin: 11/11/21 08:04 Dose: Not Given Documented by: YISEL Non-Admin Reason: IV Running <Nuha Perry PA-C - Last Filed: 11/11/21 09:23> Labs CBC & Chem 7: : 11/11/21 04:40 11/10/21 09:13 <Nuha Perry PA-C - Last Filed: 11/11/21 09:23> Labs: Laboratory Results - last 24 hr 11/10/21 11/10/21 11/10/21 09:12 09:12 09:13 MCV 95.0 MCH 31.9 MCHC 33.6 RDW 12.0 Plt Count 262 MPV 11.0 Immature Gran % (Auto) 0.4 Neut % (Auto) 83.4 H Lymph % (Auto) 8.5 L Parker % (Auto) 7.5 Eos % (Auto) 0.1 Baso % (Auto) 0.1 Lymph # (Auto) 1.7 Parker # (Auto) 1.5 H Eos # (Auto) 0.0 Baso # (Auto) 0.0 Abs Immat Gran (auto) 0.09 H Absolute Neuts (auto) 17.2 H Absolute Nucleated RBC 0.000 Nucleated RBC % (auto) 0.0 Smear Tech's Comments VERIFIED Anion Gap Estim Creat Clear Calc Estimated GFR Random Glucose Calcium Total Bilirubin Direct Bilirubin AST ALT Alkaline Phosphatase Total Protein Albumin Lipase Urine Color YELLOW Urine Appearance CLEAR Urine pH 5.5 Ur Specific [place] 1.025 Urine Protein NEG Urine Glucose (UA) NEG Urine Ketones NEG Urine Blood TRACE Urine Nitrite NEG Ur Leukocyte Esterase NEG Urine RBC 0-2 Urine WBC 0 Ur Squamous Epith Cells 1+ Urine Bacteria TRACE Urine Test NEGATIVE COVID-19 (CONNIE) COVID-19 Clin Com 11/10/21 11/10/21 11/10/21 09:13 09:13 13:07 MCV MCH MCHC RDW Plt Count MPV Immature Gran % (Auto) Neut % (Auto) Lymph % (Auto) Parker % (Auto) Eos % (Auto) Baso % (Auto) Lymph # (Auto) Parker # (Auto) Eos # (Auto) Baso # (Auto) Abs Immat Gran (auto) Absolute Neuts (auto) Absolute Nucleated RBC Nucleated RBC % (auto) Smear Tech's Comments Anion Gap 14 Estim Creat Clear Calc 123.3 Estimated GFR > 60 Random Glucose 96 Calcium 9.6 D Total Bilirubin 0.4 Direct Bilirubin < 0.2 AST 31 D ALT 13 Alkaline Phosphatase 49 Total Protein 7.7 Albumin 4.3 Lipase 18 Cancelled Urine Color Urine Appearance Urine pH Ur Specific [place] Urine Protein Urine Glucose (UA) Urine Ketones Urine Blood Urine Nitrite Ur Leukocyte Esterase Urine RBC Urine WBC Ur Squamous Epith Cells Urine Bacteria Urine Test COVID-19 (CONNIE) Negative COVID-19 Clin Com See Note 11/11/21 04:40 MCV 93.5 MCH 31.5 MCHC 33.7 RDW 12.0 Plt Count 226 MPV 11.0 Immature Gran % (Auto) Neut % (Auto) Lymph % (Auto) Parker % (Auto) Eos % (Auto) Baso % (Auto) Lymph # (Auto) Parker # (Auto) Eos # (Auto) Baso # (Auto) Abs Immat Gran (auto) Absolute Neuts (auto) Absolute Nucleated RBC 0.000 Nucleated RBC % (auto) 0.0 Smear Tech's Comments Anion Gap Estim Creat Clear Calc Estimated GFR Random Glucose Calcium Total Bilirubin Direct Bilirubin AST ALT Alkaline Phosphatase Total Protein Albumin Lipase Urine Color Urine Appearance Urine pH Ur Specific [place] Urine Protein Urine Glucose (UA) Urine Ketones Urine Blood Urine Nitrite Ur Leukocyte Esterase Urine RBC Urine WBC Ur Squamous Epith Cells Urine Bacteria Urine Test COVID-19 (CONNIE) COVID-19 Clin Com <Nuha Perry PA-C - Last Filed: 11/11/21 09:23> Procedures Date of Service Date of Service: 11/11/21 <NITHIN Wheeler Last Filed: 11/11/21 09:23> Progress Note: A&P Assessment and plan (1) Acute appendicitis: Status: Acute <NITHIN Wheeler Last Filed: 11/11/21 09:23> (2) S/P laparoscopic appendectomy: Status: Acute <NITHIN Wheeler Last Filed: 11/11/21 09:23> Assessment and Plan: She says she feels better Tolerating diet States she is ready to go home Looks well Abdomen soft Instructions given to patient Seen and examined independently <Tapan Quinonez MD - Last Filed: 11/11/21 10:09> Assessment and Plan: 21 year old female admitted with acute appendicitis, uncomplicated now POD #1 s/p lap appy. Doing well post op. VSS. Abd exam benign with appropriate post op tenderness. Dressings c/d/i. Encouraged use of PO oxycodone for pain control. Will reassess later today- if tolerating diet and comfortable on oral analgesics, stable for d/c to home today. Patient comfortable with plan. <Nuha Perry PA-C - Last Filed: 11/11/21 09:23> Fall Risk Details Current Medications: Current Medications Fentanyl (Fentanyl Citrate/Pf 100 Mcg/2 Ml Vial) 50 mcg IVPUSH Q5M PRN; Protocol PRN Reason: Pain, Severe (Pain Scale 7-10) Last Admin: 11/10/21 18:39 Dose: 50 mcg Documented by: Lactated Ringer's (Lr) 1,000 mls @ 80 mls/hr IVCONT .[id number] [facility] Last Admin: 11/11/21 02:52 Dose: 80 mls/hr Documented by: Promethazine HCl 12.5 mg/ (Sodium Chloride) 50.5 mls @ 202 mls/hr IV ONCE PRN PRN Reason: Nausea and Vomiting Acetaminophen (Ofirmev) 1,000 mg in 100 mls @ 400 mls/hr IV Q6H [facility] Stop: 11/11/21 12:59 Last Infusion: 11/11/21 06:20 Dose: Infused Documented by: Ibuprofen (Ibuprofen 600 Mg Tablet) 600 mg PO Q6H PRN PRN Reason: Pain, Moderate (Pain Scale 4-6 Ibuprofen (Ibuprofen 600 Mg Tablet) 600 mg PO Q6H PRN PRN Reason: Pain, Moderate (Pain Scale 4-6 Morphine Sulfate (Morphine Sulfate 4 Mg/Ml Cartridge) 3 mg IVPUSH Q3H PRN; Protocol PRN Reason: Pain, Severe (Pain Scale 7-10) Last Admin: 11/11/21 00:23 Dose: 3 mg Documented by: Ondansetron HCl (Ondansetron Hcl 4 Mg/2 Ml Vial) 4 mg IVPUSH Q8H PRN PRN Reason: Nausea Ondansetron HCl (Ondansetron Hcl 4 Mg/2 Ml Vial) 4 mg IVPUSH Q8H PRN PRN Reason: nausea Oxycodone HCl (Oxycodone Hcl Immed Release 5 Mg Tablet) 10 mg PO Q4H PRN PRN Reason: Pain, Moderate (Pain Scale 4-6 Last Admin: 11/11/21 07:58 Dose: 10 mg Documented by: Oxycodone HCl (Oxycodone Hcl Immed Release 5 Mg Tablet) 10 mg PO Q4H PRN PRN Reason: Pain, Moderate (Pain Scale 4-6 Sodium Chloride (0.9 % Sodium Chloride Flush 3 Ml Syringe) 3 ml IVFLUSH [facility] Last Admin: 11/11/21 08:04 Dose: Not Given Documented by: <Nuha Perry PA-C - Last Filed: 11/11/21 09:23> Time Spent With Patient Time: Total time spent is greater than 50% in coordination of care (as documented) at patient's floor/unit and/or counseling patient: <Nuha Perry PA-C - Last Filed: 11/11/21 09:23> Time with patient: 15 - 24 minutes <Nuha Perry PA-C - Last Filed: 11/11/21 09:23> Quality Stroke Does the patient have a stroke diagnosis?: No <Nuha Perry PA-C - Last Filed: 11/11/21 09:23> VTE Prior VTE?: No <Nuha Perry PA-C - Last Filed: 11/11/21 09:23> VTE Risk Level:: Surgical - low <NITHIN Wheeler Last Filed: 11/11/21 09:23> VTE Device Contraindication: Treatment Not Indicated <NITHIN Wheeler Last Filed: 11/11/21 09:23> VTE Drug Contraindication: Treatment Not Indicated <NITHIN Wheeler Last Filed: 11/11/21 09:23>
--- NOTE | 2021-11-11 09:53 | MHC.CM.PN ---
PATIENT IS FULLY INDEPENDENT WITH ADLS SHE IS DC HOME TODAY - SELF CARE NO CASE MANAGEMENT INTERVENTION NEEDED.' RN AWARE OF PLAN
--- NOTE | 2021-11-11 10:06 | P.DS_ITS ---
DS: Providers Provider Date of Service: 11/11/21 Date of admission: 11/10/21 11:12 Primary care physician: None Physician Attending physician on admission: Tapan Quinonez DS: Diagnosis Discharge Diagnosis (1) Acute appendicitis: Status: Acute (2) S/P laparoscopic appendectomy: Status: Acute DS: Summary Hospital Course Hospital Course: BRIEF HPI: Nell Zapata is a 21 year old female who came to the emergency room this morning because of right lower quadrant pain.? She says this started about 05:00 o'clock this morning.? She woke up with sudden ear pain on the right lower quadrant.? She also describes some nausea at that time.? She says she has not had any similar episodes in the past. In view of this pain, she came to the emergency room.? She denies any diarrhea or any other GI complaints.? She denies any dysuria.? She says that she was fine when she went to bed last night. She continues to have right lower quadrant pain now. CAT scan shows that the appendix is upper normal suggestive of early appendicitis. She also has leukocytosis.? HOSPITAL COURSE: ? She was admitted to the surgical service for further treatment of acute appendicitis. Treatment options were reviewed including proc eeding with appendectomy versus IV antibiotic treatment. She wanted to proceed with appendectomy.? She has given consent therefore. She was added onto the OR schedule for that day. A laparoscopic appendectomy was performed by Dr. Tapan Quinonez without complication. The patient tolerated the procedure well, completed routine recovery and was admitted for observation. The patient had an uncomplicated recovery course. On POD #1, she felt better but had some incisional pain. She was ambulating without difficulty. She had a benign abd exam and clean dressings. Her WBC count normalized. She was reassessed later that morning and was comfortable on PO analgesics and tolerating a solid diet. She felt ready for discharge. She was discharged to home on 11/11/21 in stable condition. She is to follow up with Dr. Quinonez in 2 weeks in office. Status at Discharge Functional status at discharge: independent ambulation Overall status at discharge: patient is progressing back to baseline Time Spent with Patient Time attestation: Total time spent providing and/or coordinating discharge services: Discharge coordination time: Less than 30 minutes Quality: Stroke Does the patient have a stroke diagnosis?: No Physical Exam Vital Signs: Vital Signs: Last Vital Signs Temp 98.2 F 11/11/21 07:36 Pulse 68 11/11/21 07:36 Resp 18 11/11/21 07:36 BP 122/59 L 11/11/21 07:36 Pulse Ox 100 11/11/21 07:36 BMI result Body Mass Index 28.1 Const: Orientation/consciousness: patient oriented x3 Eyes: Sclerae: sclerae normal GI: Inspection: No distended and Yes incision (dressings c/d/i) Palpation (GI): Soft to palpation, Tenderness to palpation present (GI) (mild, incisional), no guarding and not rigid Percussion: Yes normal to percussion Skin: General skin exam: no rashes or lesions noted Neuro: General: patient oriented x3 Extrem: General: Yes no clubbing, cyanosis or edema DS: Data Data Completed and Pending Pending studies at discharge: Pending at discharge 11/10/21 17:48 Surgical [PTH] Routine Labs on day of discharge: Laboratory Results - last 24 hr 11/10/21 11/11/21 13:07 04:40 WBC 10.4 RBC 3.55 L Hgb 11.2 L Hct 33.2 L MCV 93.5 MCH 31.5 MCHC 33.7 RDW 12.0 Plt Count 226 MPV 11.0 Absolute Nucleated RBC 0.000 Nucleated RBC % (auto) 0.0 COVID-19 (CONNIE) Negative COVID-19 Clin Com See Note Discharge Plan Discharge Patient Disposition: Home, Self-Care Discharge Diagnosis: acute appendicitis Referrals: Tapan Quinonez MD [Physician] - 2 Weeks Physician,None [Primary Care Provider] - 1 Week Discharge Medications: New oxycodone 5 mg tablet 5 mg PO Q4H PRN (Reason: pain (scale score 7-10)) Qty: 24 RF: 0 docusate sodium [Colace] 100 mg capsule 100 mg PO BID PRN (Reason: constipation) Qty: 30 RF: 0 Discharge Orders: Discharge Order (Routine); Ordered 11/11/21 Ordered By: Tapan Quinonez Diet: advance to usual diet Activity on Discharge: No heavy lifting Stand Alone Forms: Patient Portal Discharge page Activity Restrictions/Additional Instructions: If the incision area is tender, you may apply an ice pack for short intervals (No more than 20 minutes on, followed by at least 20 minutes off). Do not apply heat. Do not use creams, lotions, or topical antibiotics unless instructed to do so by your surgeon. These can cause infection or allergic reaction. OK to shower starting tomorrow Okay to change dressings with Band-Aids No lifting more than 20 lb No strenuous activities Call the office for follow-up in 2 weeks - with Dr. Quinonez Call Your Doctor If: -Your temperature exceeds 101.5? F -You experience excessive pain or swelling -You have an unexpected reaction to medication -You have excessive bleeding -You experience continued vomiting/nausea -Your incision begins to separate -Your incision shows signs of infection such as increased redness, swelling, excessive pain, drainage (light blood or clear fluid is normal) or heat Care Plan Goals: pain management continue therapy for behavioral health Health Concerns: pain control behavioral health Plan of Treatment: oral pain meds ffup in office Assessment: doing very well postop
--- NOTE | 2021-11-11 14:10 | HO.POSTANES ---
Post Anesthesia Evaluation Post Anesthesia Evaluation Vital Signs: Vital Signs Temp Pulse Resp BP Pulse Ox 11/11/21 07:36 98.2 F 68 18 122/59 L 100 11/11/21 03:43 97.1 F 68 18 129/70 97 Anesthesia: General Endotracheal-GETA Mental Status: Awake Pain Control: Satisfactory Nausea/Vomiting: None Hydration: Adequate Anesthesia-Related Issues: No Anes. Related Issues
== END 2021-11-11 11:32 | disposition home or self-care (01) | DRG 234 ==
LOC: HO.ED 11:20 → HO.EDOVER 11:22 → HO.S3 19:16
PROVIDERS: Admitting Provider Surgery; Emergency Provider Emergency Medicine; Visit Provider Surgery
PROC: 0DTJ4ZZ Resection of Appendix, Percutaneous Endoscopic Approach (ICD-10-PCS; CPT 44970; principal; 2021-11-10 14:20)
DX: K35.80 Unspecified acute appendicitis (principal); Z20.822 Contact with and (suspected) exposure to COVID-19; Z23 Encounter for immunization
CPT/HCPCS: 44970; 36415; 74176; 80048; 80076; 81001; 81025; 83690; 85025; 85027; 87635; 88304; 90686; 96361; 96374; 96375; 99284; 99285; J0131; J1100; J1885; J2250; J2270; J2405; J3010

== ENCOUNTER 2022-04-18 13:49 | Outpatient (REF) | payer OTHER, SELFPAY ==
[2022-04-18 14:21] LABS: COVID-19 Test Negative (Negative); IDNOW Serial# 08D9AD1C
== END 2022-04-18 13:50 | disposition home or self-care (01) ==
LOC: HO.LAB 13:49
PROVIDERS: Visit Provider Internal Medicine
DX: Z20.822 Contact with and (suspected) exposure to COVID-19 (principal)
CPT/HCPCS: 87635; C9803

== ENCOUNTER 2022-04-30 10:44 | Emergency (ER) | payer OTHER, SELFPAY ==
[2022-04-30 10:47] VITALS: BP 133/100; PULSE 92; RESP 18; TEMP 36.8; O2SAT 98; BMI 26.6
[2022-04-30] MEDS: Ondansetron ODT 4 MG TAB.RAPDIS TRANSLINGU (10:51)
[2022-04-30] MEDS: 0.9 % Sodium Chloride 1,000 ML 999 ML IV (11:37)
[2022-04-30 11:40] LABS: Hemoglobin 13.9 g/dl (12.0-16.0); Mean Corpuscular HGB Conc 33.9 g/dl (31.0-35.0); Mean Corpuscular Hemoglobin 31.9 pg (27.0-33.0); Mean Platelet Volume 10.8 fL (9.4-12.3); Platelet Count 257 X10*3/uL (160-400); Red Blood Count 4.36 X10*6/uL (4.20-5.50); Red Cell Distribution Width 13.3 % (11.0-16.0); White Blood Count 8.8 X10*3/uL (4.8-10.8)
[2022-04-30] MEDS: ondansetron HCL 4 MG/2 ML VIAL IVPUSH ×2 (11:41→14:05)
[2022-04-30] MEDS: Famotidine/PF 20 MG/2 ML VIAL IVPUSH (11:52)
[2022-04-30 11:57] LABS: Alanine Aminotransferase 6 U/L (0-31); Albumin Level 4.7 g/dL (3.5-5.0); Alkaline Phosphatase 62 U/L (39-117); Anion Gap 13 (12-20); Aspartate Amino Transferase 15 U/L (5-31); Bilirubin Direct 0.3 mg/dL (0.0-0.5); Bilirubin Total 0.6 mg/dL (0.0-1.0); Blood Urea Nitrogen 10 mg/dL (9-16); Calcium 9.7 mg/dL (8.4-10.2); Carbon Dioxide 24 mmol/L (22-29); Chloride 107 mmol/L (96-108); Creatinine Clr Calc Pharmacy 118.5; Estimated Glomerular Filt Rate > 60; Glucose Random 110 mg/dL (60-115); Lipase 12 U/L (8-78); Potassium 3.8 mmol/L (3.3-5.1); Sodium 140 mmol/L (135-145); Total Protein 7.9 g/dL (6.5-8.0)
[2022-04-30] MEDS: 0.9 % Sodium Chloride 1,000 ML 999 ML IVCONT (14:05)
--- NOTE | 2022-04-30 15:10 | PC.NURSE ---
pt sleeping,easily awoken, no vomiting since being in em[facility], nad.
--- NOTE | 2022-04-30 15:11 | ED.GENADULT ---
HPI - General Adult General Chief complaint: Nausea/Vomiting/Diarrhea Stated complaint: throwing up Time Seen by Provider: 04/30/22 11:21 History of Present Illness HPI narrative: Patient complains of nausea burning stomach pain feeling very fatigued and body achy, she did drink very heavily last night and believes she is hung over, no diarrhea no dysuria no fever no chills no chest pain Related Data Previous Rx's Medication Instructions Recorded docusate sodium 100 mg capsule 100 mg PO BID PRN constipation #30 11/11/21 (Colace) caps oxycodone 5 mg tablet 5 mg PO Q4H PRN pain (scale score 11/11/21 7-10) #24 tabs famotidine 20 mg tablet (Pepcid) 20 mg PO BID Reflux/acid pain #14 04/30/22 tabs ondansetron HCl 4 mg tablet 4 mg PO TID Nausea #10 tabs 04/30/22 Allergies Allergy/AdvReac Type Severity Reaction Status Date / Time No Known Allergies Allergy Verified 01/16/21 07:18 Review of Systems Review of Systems: Positive for nausea vomiting and burning stomach pain Negatives are no fever no chills no fainting no headache no neck pain no chest pain no diarrhea no dysuria no joint pains no neck pain no back pain Yes all other systems are reviewed and are negative PMFSH Past Medical History Source: nursing notes reviewed Medical History Bipolar 1 disorder Schizophrenia Surgical History No pertinent past surgical history Family History Family History Father Medical history unknown Mother Medical history unknown Maternal Aunt Breast cancer Social History Social History Household Members: Significant Other Housing: Apartment Do you presently have visiting nurse or other home services: No Alcohol intake: never Patient Tobacco Use Status: Never used Tobacco Substance Use Type: Marijuana Advance Directives: No Advance Directives Information Provided: Yes service: No Current occupational status: disabled Physical Exam ED Vital Signs: Vital Signs - 24 hr 04/30/22 10:47 Temperature 98.2 F Pulse Rate 92 Respiratory Rate 18 Blood Pressure 133/100 H Pulse Oximetry 98 Oxygen Delivery Method Room Air BMI result Body Mass Index 26.6 General appearance is tired appearing no acute distress Eyes pupils equal round reactive to light, extraocular motions are intact The pharynx mucous membranes are slightly dry, no redness swelling or exudate Neck is supple nontender Respiratory no distress Chest clear to auscultation bilateral The abdomen there was very mild epigastric tenderness no other tenderness no rebound or guarding Extremities full range of motion x4 no edema no rash Neuro no focal motor sensory deficits, gait and balance are normal, interaction comprehension and expression are normal Course Course Course Narrative: Patient was hydrated, and given Zofran and Pepcid and was able to tolerate p.o. fluids and felt much better Repeat abdominal exam was nontender Labs were checked with no acute abnormalities Patient is clinically sober, tolerating p.o., very improved and is discharged waiting for ride home Medical Decision Making Lab Data Lab results reviewed: Yes I reviewed the patient's lab results. Result diagrams: 04/30/22 11:32 04/30/22 11:32 Labs: Lab Results 04/30/22 04/30/22 04/30/22 Range/Units 11:32 11:32 11:32 WBC 8.8 (4.8-10.8) X10*3/uL RBC 4.36 D (4.20-5.50) X10*6/uL Hgb 13.9 D (12.0-16.0) g/dl Hct 41.0 D (37.0-47.0) % MCV 94.0 (80.0-98.0) fL MCH 31.9 (27.0-33.0) pg MCHC 33.9 (31.0-35.0) g/dl RDW 13.3 (11.0-16.0) % Plt Count 257 (160-400) X10*3/uL MPV 10.8 (9.4-12.3) fL Absolute Nucleated RBC 0.000 (0.0-0.012) X10*3/uL Nucleated RBC % (auto) 0.0 (0.0-0.2) /100WBC Sodium 140 (135-145) mmol/L Potassium 3.8 (3.3-5.1) mmol/L Chloride 107 (96-108) mmol/L Carbon Dioxide 24 (22-29) mmol/L Anion Gap 13 (12-20) BUN 10 (9-16) mg/dL Creatinine 0.79 (0.5-1.4) mg/dL Estim Creat Clear Calc 118.5 Estimated GFR > 60 Random Glucose 110 (60-115) mg/dL Calcium 9.7 (8.4-10.2) mg/dL Total Bilirubin 0.6 (0.0-1.0) mg/dL Direct Bilirubin 0.3 (0.0-0.5) mg/dL AST 15 D (5-31) U/L ALT 6 (0-31) U/L Alkaline Phosphatase 62 D (39-117) U/L Total Protein 7.9 (6.5-8.0) g/dL Albumin 4.7 (3.5-5.0) g/dL Lipase 12 (8-78) U/L Discharge Plan Discharge Clinical Impression: Vomiting Patient Disposition: Home, Self-Care Additional Instructions: Drink plenty of fluids Zofran if needed for nausea, Pepcid if needed for burning acid pain Try to limit use of alcohol Return any time any worse condition or any concerns Prescriptions: New ondansetron HCl 4 mg tablet 4 mg PO TID Qty: 10 0RF famotidine [Pepcid] 20 mg tablet 20 mg PO BID Qty: 14 0RF No Action oxycodone 5 mg tablet 5 mg PO Q4H PRN (Reason: pain (scale score 7-10)) Qty: 24 0RF docusate sodium [Colace] 100 mg capsule 100 mg PO BID PRN (Reason: constipation) Qty: 30 0RF Stand Alone Forms: Work/School Release
== END 2022-04-30 15:25 | disposition home or self-care (01) ==
PROVIDERS: Physician Assistant Medical; Emergency Provider Emergency Medicine
DX: R11.2 Nausea with vomiting, unspecified (principal); R10.13 Epigastric pain
CPT/HCPCS: 36415; 80048; 80076; 83690; 85027; 96361; 96374; 96375; 96376; 99283; 99284; J2405

== ENCOUNTER 2022-10-09 16:37 | Emergency (ER) | payer OTHER, SELFPAY ==
[2022-10-09 16:59] VITALS: BP 119/69; PULSE 97; RESP 17; TEMP 38.1; O2SAT 98; BMI 25.2
[2022-10-09 17:05] VITALS: PULSE 119
--- NOTE | 2022-10-09 17:14 | ED.GENADULT ---
HPI - General Adult General Chief complaint: Upper Respiratory Symptoms <Aaron Carrillo MD - Last Filed: 10/10/22 01:14> Stated complaint: +Covid,CP <Aaron Carrillo MD - Last Filed: 10/10/22 01:14> Time Seen by Provider: 10/09/22 16:59 <Aaron Carrillo MD - Last Filed: 10/10/22 01:14> Source: patient <Aaron Carrillo MD - Last Filed: 10/10/22 01:14> Limitations: no limitations <Aaron Carrillo MD - Last Filed: 10/10/22 01:14> History of Present Illness HPI narrative: This is a 22-year-old female who became ill 2 days ago with URI symptoms and fever. She has also had body aches, vomiting, but no diarrhea. She has had a mild cough. She began to feel today that she had shortness of breath and chest congestion/tightness. She said her fever was high at home. She has not been immunized for COVID and states she did have a home test that was positive. <Aaron Carrillo MD - Last Filed: 10/10/22 01:14> Related Data Home medications: Previous Rx's Medication Instructions Recorded docusate sodium 100 mg capsule 100 mg PO BID PRN constipation #30 11/11/21 (Colace) caps oxycodone 5 mg tablet 5 mg PO Q4H PRN pain (scale score 11/11/21 7-10) #24 tabs famotidine 20 mg tablet (Pepcid) 20 mg PO BID Reflux/acid pain #14 04/30/22 tabs ondansetron HCl 4 mg tablet 4 mg PO TID Nausea #10 tabs 04/30/22 ondansetron 4 mg disintegrating 4 mg PO Q6H PRN nausea and 10/09/22 tablet vomiting #7 tabs omeprazole magnesium 20 mg 20 mg PO BID 10 days #20 tabs 12/24/22 tablet,delayed release <Aaron Carrillo MD - Last Filed: 10/10/22 01:14> Allergies/adverse reactions: Allergies Allergy/AdvReac Type Severity Reaction Status Date / Time No Known Allergies Allergy Verified 01/16/21 07:18 <Aaron Carrillo MD - Last Filed: 10/10/22 01:14> Review of Systems Review of Systems: As per HPI <Aaron Carrillo MD - Last Filed: 10/10/22 01:14> PMFSH Past Medical History Source: nursing notes reviewed <MALIHA Ramos - Last Filed: 01/08/23 18:01> Medical History: Medical History Bipolar 1 disorder Schizophrenia <Aaron Carrillo MD - Last Filed: 10/10/22 01:14> Surgical History: Surgical History No pertinent past surgical history <Aaron Carrillo MD - Last Filed: 10/10/22 01:14> Family History Family History: Family History Father Medical history unknown Mother Medical history unknown Maternal Aunt Breast cancer <Aaron Carrillo MD - Last Filed: 10/10/22 01:14> Social History Social History: Social History Household Members: Significant Other Housing: Apartment Do you presently have visiting nurse or other home services: No Alcohol intake: never Patient Tobacco Use Status: Never used Tobacco Substance Use Type: Marijuana Advance Directives: No Advance Directives Information Provided: No service: No Current occupational status: disabled <Aaron Carrillo MD - Last Filed: 10/10/22 01:14> Physical Exam ED Vital Signs: Vital Signs - 24 hr 10/09/22 16:59 10/09/22 19:24 Temperature 100.6 F H 98.6 F Pulse Rate 97 85 Respiratory Rate 17 18 Blood Pressure 119/69 111/59 L Pulse Oximetry 98 95 Oxygen Delivery Method Room Air Room Air BMI result Body Mass Index 25.2 <Aaron Carrillo MD - Last Filed: 10/10/22 01:14> Vital Signs - 24 hr 10/09/22 16:59 10/09/22 19:24 Temperature 100.6 F H 98.6 F Pulse Rate 97 85 Respiratory Rate 17 18 Blood Pressure 119/69 111/59 L Pulse Oximetry 98 95 Oxygen Delivery Method Room Air Room Air BMI result Body Mass Index 25.2 <MALIHA Ramos - Last Filed: 01/08/23 18:01> Const General: no acute distress <Aaron Carrillo MD - Last Filed: 10/10/22 01:14> Orientation/consciousness: patient oriented x3 <Aaron Carrillo MD - Last Filed: 10/10/22 01:14> HENMT Head: Yes normal to inspection <Aaron Carrillo MD - Last Filed: 10/10/22 01:14> General nose exam: Normal external nose present <Aaron Carrillo MD - Last Filed: 10/10/22 01:14> Mouth: moist mucous membranes <Aaron Carrillo MD - Last Filed: 10/10/22 01:14> Throat: Yes posterior oropharynx normal, Yes tonsils normal and Yes uvula midline <Aaron Carrillo MD - Last Filed: 10/10/22 01:14> Eyes Eyelids: Yes eyelids normal <Aaron Carrillo MD - Last Filed: 10/10/22 01:14> Conjunctivae: conjunctivae normal <MD Tim Monsalve Last Filed: 10/10/22 01:14> Pupils: Equal, round and reactive pupils present <MD Tim Monsalve Last Filed: 10/10/22 01:14> Neck Neck: Yes supple <Aaron Carrillo MD - Last Filed: 10/10/22 01:14> Resp Effort & Inspection: normal respiratory effort <MD Tim Monsalve Last Filed: 10/10/22 01:14> Auscultation: clear to auscultation bilaterally <MD Tim Monsalve Last Filed: 10/10/22 01:14> Cardio Rate: regular rate <Aaron Carrillo MD - Last Filed: 10/10/22 01:14> Rhythm: regular rhythm <Aaron Carrillo MD - Last Filed: 10/10/22 01:14> Heart sounds: S1 normal heart sound present, S2 normal heart sound present, no gallops, no murmurs and no rubs <MD Tim Monsalve Last Filed: 10/10/22 01:14> GI Inspection: No distended <Aaron Carrillo MD - Last Filed: 10/10/22 01:14> Palpation (GI): Soft to palpation and nontender <MD Tim Monsalve Last Filed: 10/10/22 01:14> Auscultation: normal bowel sounds <MD Tim Monsalve Last Filed: 10/10/22 01:14> Skin General skin exam: other (Warm and dry) <Aaron Carrillo MD - Last Filed: 10/10/22 01:14> Neuro General: patient oriented x3 and CN's II-XI intact bilaterally <Aaron Carrillo MD - Last Filed: 10/10/22 01:14> Cranial nerves: Yes Equal, round and reactive pupils present <Aaron Carrillo MD - Last Filed: 10/10/22 01:14> Extrem General: Yes no pedal edema <Aaron Carrillo MD - Last Filed: 10/10/22 01:14> Psych Affect: normal affect <Aaron Carrillo MD - Last Filed: 10/10/22 01:14> Attitude: cooperative <Aaron Carrillo MD - Last Filed: 10/10/22 01:14> Medications Administered Discontinued Medications Generic Name Dose Route Start Last Admin Trade Name Freq PRN Reason Stop Dose Admin Acetaminophen 650 mg 10/09/22 17:10 10/09/22 17:46 Acetaminophen 325 Mg Tablet PO 10/09/22 17:11 650 mg ONCE ONE Administration Sodium Chloride 1,000 mls @ 999 mls/hr 10/09/22 17:15 10/09/22 19:20 Ns IV 10/09/22 18:15 Infused .Q1H1M IGNACIO Infusion Ketorolac Tromethamine 15 mg 10/09/22 17:10 10/09/22 17:49 Ketorolac Tromethamine 15 Mg/Ml Vial IVPUSH 10/09/22 17:11 15 mg ONCE ONE Administration Ondansetron HCl 4 mg 10/09/22 17:10 10/09/22 17:49 Ondansetron Hcl 4 Mg/2 Ml Vial IVPUSH 10/09/22 17:11 4 mg ONCE ONE Administration <Aaron Carrillo MD - Last Filed: 10/10/22 01:14> Medications Administered Discontinued Medications Generic Name Dose Route Start Last Admin Trade Name Freq PRN Reason Stop Dose Admin Acetaminophen 650 mg 10/09/22 17:10 10/09/22 17:46 Acetaminophen 325 Mg Tablet PO 10/09/22 17:11 650 mg ONCE ONE Administration Sodium Chloride 1,000 mls @ 999 mls/hr 10/09/22 17:15 10/09/22 19:20 Ns IV 10/09/22 18:15 Infused .Q1H1M IGNACIO Infusion Ketorolac Tromethamine 15 mg 10/09/22 17:10 10/09/22 17:49 Ketorolac Tromethamine 15 Mg/Ml Vial IVPUSH 10/09/22 17:11 15 mg ONCE ONE Administration Ondansetron HCl 4 mg 10/09/22 17:10 10/09/22 17:49 Ondansetron Hcl 4 Mg/2 Ml Vial IVPUSH 10/09/22 17:11 4 mg ONCE ONE Administration <MALIHA Ramos - Last Filed: 01/08/23 18:01> Medical Decision Making Medical Decision Making MDM Narrative: Patient with fever, body aches, vomiting, stated she had tested positive for COVID at home. COVID test here was negative. Influenza a test was positive. Patient was given normal saline 1 L IV, Zofran 4 mg IV, Toradol 15 mg IV, acetaminophen 650 mg p.o.. She had improvement in her symptoms. Given that the symptoms have been present for over 48 hours, Tamiflu is not indicated <Aaron Carrillo MD - Last Filed: 10/10/22 01:14> Lab Data Result Diagrams: 10/09/22 18:05 10/09/22 18:05 <Aaron Carrillo MD - Last Filed: 10/10/22 01:14> Labs: Lab Results 10/09/22 10/09/22 10/09/22 Range/Units 18:05 18:05 18:05 WBC 7.8 (4.8-10.8) X10*3/uL RBC 3.91 L (4.20-5.50) X10*6/uL Hgb 12.8 (12.0-16.0) g/dl Hct 36.3 L (37.0-47.0) % MCV 92.8 (80.0-98.0) fL MCH 32.7 (27.0-33.0) pg MCHC 35.3 H (31.0-35.0) g/dl RDW 13.1 (11.0-16.0) % Plt Count 167 D (160-400) X10*3/uL MPV 10.6 (9.4-12.3) fL Immature Gran % (Auto) 0.3 (0.0-0.4) % Neut % (Auto) 63.5 (45-73) % Lymph % (Auto) 14.7 L (20-40) % [place] % (Auto) 21.4 H (2-11) % Eos % (Auto) 0.0 (0-4) % Baso % (Auto) 0.1 (0-2) % Lymph # (Auto) 1.2 (1.2-4.9) X10*3/uL [place] # (Auto) 1.7 H (0.1-1.2) X10*3/uL Eos # (Auto) 0.0 (0.0-0.4) X10*3/uL Baso # (Auto) 0.0 (0.0-0.2) X10*3/uL Abs Immat Gran (auto) 0.02 (0.00-0.03) X10*3/uL Absolute Neuts (auto) 5.0 (2.0-8.3) x10*3/uL Absolute Nucleated RBC 0.000 (0.0-0.012) X10*3/uL Nucleated RBC % (auto) 0.0 (0.0-0.2) /100WBC Smear Tech's Comments VERIFIED Sodium 136 (135-145) mmol/L Potassium 3.5 (3.3-5.1) mmol/L Chloride 103 (96-108) mmol/L Carbon Dioxide 22 (22-29) mmol/L Anion Gap 15 (12-20) BUN 12 (9-16) mg/dL Creatinine 0.85 (0.5-1.4) mg/dL Estim Creat Clear Calc 99.2 Estimated GFR > 60 Random Glucose 99 (60-115) mg/dL Calcium 8.8 D (8.4-10.2) mg/dL Total Bilirubin 0.8 (0.0-1.0) mg/dL AST 14 (5-31) U/L ALT < 6 (0-31) U/L Alkaline Phosphatase 55 (39-117) U/L Total Protein 7.2 (6.5-8.0) g/dL Albumin 4.4 (3.5-5.0) g/dL Influenza Type A (PCR) POSITIVE A (Negative) Influenza Type B (PCR) NEGATIVE (Negative) RSV RNA Qual (PCR) NEGATIVE (Negative) SARS-CoV-2 RNA (RT-PCR) NEGATIVE (Negative) <Aaron Carrillo MD - Last Filed: 10/10/22 01:14> Lab Results 10/09/22 10/09/22 10/09/22 Range/Units 18:05 18:05 18:05 WBC 7.8 (4.8-10.8) X10*3/uL RBC 3.91 L (4.20-5.50) X10*6/uL Hgb 12.8 (12.0-16.0) g/dl Hct 36.3 L (37.0-47.0) % MCV 92.8 (80.0-98.0) fL MCH 32.7 (27.0-33.0) pg MCHC 35.3 H (31.0-35.0) g/dl RDW 13.1 (11.0-16.0) % Plt Count 167 D (160-400) X10*3/uL MPV 10.6 (9.4-12.3) fL Immature Gran % (Auto) 0.3 (0.0-0.4) % Neut % (Auto) 63.5 (45-73) % Lymph % (Auto) 14.7 L (20-40) % [place] % (Auto) 21.4 H (2-11) % Eos % (Auto) 0.0 (0-4) % Baso % (Auto) 0.1 (0-2) % Lymph # (Auto) 1.2 (1.2-4.9) X10*3/uL [place] # (Auto) 1.7 H (0.1-1.2) X10*3/uL Eos # (Auto) 0.0 (0.0-0.4) X10*3/uL Baso # (Auto) 0.0 (0.0-0.2) X10*3/uL Abs Immat Gran (auto) 0.02 (0.00-0.03) X10*3/uL Absolute Neuts (auto) 5.0 (2.0-8.3) x10*3/uL Absolute Nucleated RBC 0.000 (0.0-0.012) X10*3/uL Nucleated RBC % (auto) 0.0 (0.0-0.2) /100WBC Smear Tech's Comments VERIFIED Sodium 136 (135-145) mmol/L Potassium 3.5 (3.3-5.1) mmol/L Chloride 103 (96-108) mmol/L Carbon Dioxide 22 (22-29) mmol/L Anion Gap 15 (12-20) BUN 12 (9-16) mg/dL Creatinine 0.85 (0.5-1.4) mg/dL Estim Creat Clear Calc 99.2 Estimated GFR > 60 Random Glucose 99 (60-115) mg/dL Calcium 8.8 D (8.4-10.2) mg/dL Total Bilirubin 0.8 (0.0-1.0) mg/dL AST 14 (5-31) U/L ALT < 6 (0-31) U/L Alkaline Phosphatase 55 (39-117) U/L Total Protein 7.2 (6.5-8.0) g/dL Albumin 4.4 (3.5-5.0) g/dL Influenza Type A (PCR) POSITIVE A (Negative) Influenza Type B (PCR) NEGATIVE (Negative) RSV RNA Qual (PCR) NEGATIVE (Negative) SARS-CoV-2 RNA (RT-PCR) NEGATIVE (Negative) <MALIHA Ramos - Last Filed: 01/08/23 18:01> Independent Interpretation I performed an independent interpretation of an: EKG <Aaron Carrillo MD - Last Filed: 10/10/22 01:14> Interpretation: Sinus rhythm with a rate of 93. No ST elevation or depression. Right atrial enlargement. <Aaron Carrillo MD - Last Filed: 10/10/22 01:14> Discharge Plan Discharge Clinical Impression: Influenza A <Aaron Carrillo MD - Last Filed: 10/10/22 01:14> Patient Disposition: Home, Self-Care <Aaron Carrillo MD - Last Filed: 10/10/22 01:14> Instructions: Influenza (ED) <Aaron Carrillo MD - Last Filed: 10/10/22 01:14> Additional Instructions: Drink plenty of fluids. Use ibuprofen, and/or acetaminophen for fever. Use ondansetron as prescribed for nausea. Use cough medicine such as Robitussin DM for cough. Return for any new worse symptoms. <Aaron Carrillo MD - Last Filed: 10/10/22 01:14> Prescriptions: New ondansetron 4 mg tablet,disintegrating 4 mg PO Q6H PRN (Reason: nausea and vomiting) Qty: 7 0RF No Action oxycodone 5 mg tablet 5 mg PO Q4H PRN (Reason: pain (scale score 7-10)) Qty: 24 0RF docusate sodium [Colace] 100 mg capsule 100 mg PO BID PRN (Reason: constipation) Qty: 30 0RF ondansetron HCl 4 mg tablet 4 mg PO TID Qty: 10 0RF famotidine [Pepcid] 20 mg tablet 20 mg PO BID Qty: 14 0RF omeprazole magnesium 20 mg tablet,delayed release (DR/EC) 20 mg PO BID 10 Days Qty: 20 0RF <Aaron Carrillo MD - Last Filed: 10/10/22 01:14> Stand Alone Forms: Work/School Release <Aaron Carrillo MD - Last Filed: 10/10/22 01:14> Interventions: ED Discharge Assessment Last Done: 10/09/22 19:54 <Aaron Carrillo MD - Last Filed: 10/10/22 01:14> Discharge Date/Time: 10/09/22 19:55 <Aaron Carrillo MD - Last Filed: 10/10/22 01:14>
--- NOTE | 2022-10-09 17:15 | ECG_ITS ---
Test Reason : COVID SOB Blood Pressure : / mmHG Vent. Rate : 093 BPM Atrial Rate : 093 BPM P-R Int : 130 ms QRS Dur : 088 ms QT Int : 376 ms P-R-T Axes : 071 074 055 degrees QTc Int : 467 ms Normal sinus rhythm Right atrial enlargement Borderline ECG No previous ECGs available Referred By: Aaron Carrillo Electronically Signed By:Danny Marsh
[2022-10-09] MEDS: Acetaminophen 325 MG TABLET 650 MG PO (17:46)
[2022-10-09] MEDS: Ketorolac Tromethamine 15 MG/ML VIAL IVPUSH (17:49)
[2022-10-09] MEDS: 0.9 % Sodium Chloride 1,000 ML 999 ML IV (17:49)
[2022-10-09] MEDS: ondansetron HCL 4 MG/2 ML VIAL IVPUSH (17:49)
[2022-10-09 18:10] LABS: Basophils Percent Auto 0.1 % (0-2); Hematocrit 36.3 % (37.0-47.0); Hemoglobin 12.8 g/dl (12.0-16.0); Imm Gran Abs Auto 0.02 X10*3/uL (0.00-0.03); Imm Gran Pct Auto 0.3 % (0.0-0.4); Lymphocytes Absolute Auto 1.2 X10*3/uL (1.2-4.9); Lymphocytes Percent Auto 14.7 % (20-40); MANUAL DIFF FLAG SCAN; Mean Corpuscular HGB Conc 35.3 g/dl (31.0-35.0); Mean Corpuscular Hemoglobin 32.7 pg (27.0-33.0); Mean Corpuscular Volume 92.8 fL (80.0-98.0); Mean Platelet Volume 10.6 fL (9.4-12.3); Monocytes Absolute Auto 1.7 X10*3/uL (0.1-1.2); Monocytes Percent Auto 21.4 % (2-11); Neutrophils Percent Auto 63.5 % (45-73); Platelet Count 167 X10*3/uL (160-400); Red Blood Count 3.91 X10*6/uL (4.20-5.50); Red Cell Distribution Width 13.1 % (11.0-16.0); SCAN SMEAR FLAG 1; White Blood Count 7.8 X10*3/uL (4.8-10.8)
[2022-10-09 18:27] LABS: Alanine Aminotransferase < 6 U/L (0-31); Albumin Level 4.4 g/dL (3.5-5.0); Alkaline Phosphatase 55 U/L (39-117); Anion Gap 15 (12-20); Aspartate Amino Transferase 14 U/L (5-31); Bilirubin Total 0.8 mg/dL (0.0-1.0); Blood Urea Nitrogen 12 mg/dL (9-16); Calcium 8.8 mg/dL (8.4-10.2); Carbon Dioxide 22 mmol/L (22-29); Chloride 103 mmol/L (96-108); Creatinine Clr Calc Pharmacy 99.2; Estimated Glomerular Filt Rate > 60; Glucose Random 99 mg/dL (60-115); Potassium 3.5 mmol/L (3.3-5.1); Sodium 136 mmol/L (135-145); Total Protein 7.2 g/dL (6.5-8.0)
[2022-10-09 18:28] LABS: SLIDE REVIEW VERIFIED
[2022-10-09 18:47] LABS: Influenza A PCR POSITIVE (Negative); Influenza B PCR NEGATIVE (Negative); Resp Syncy Virus RNA Qual PCR NEGATIVE (Negative); SARS COV2 PCR INHOUSE NEGATIVE (Negative)
[2022-10-09 19:24] VITALS: BP 111/59; PULSE 85; RESP 18; TEMP 37; O2SAT 95
== END 2022-10-09 19:55 | disposition home or self-care (01) ==
PROVIDERS: Emergency Provider Emergency Medicine
DX: U07.1 COVID-19 (principal); J10.1 Influenza due to other identified influenza virus with other respiratory manifestations; R07.89 Other chest pain; M79.10 Myalgia, unspecified site; R05.9 Cough, unspecified; Z79.899 Other long term (current) drug therapy
CPT/HCPCS: 0241U; 36415; 80053; 85025; 93005; 96361; 96374; 96375; 99284; J1885; J2405

== ENCOUNTER 2022-12-24 06:20 | Emergency (ER) | payer OTHER, SELFPAY ==
[2022-12-24 07:22] VITALS: BP 151/82; PULSE 113; RESP 16; TEMP 36.6; O2SAT 97; BMI 21.9
[2022-12-24 07:34] LABS: MANUAL DIFF FLAG NO
[2022-12-24] MEDS: Ondansetron ODT 4 MG TAB.RAPDIS TRANSLINGU (07:39)
[2022-12-24 07:49] LABS: Basophils Percent Auto 0.4 % (0-2); Eosinophils Percent Auto 0.2 % (0-4); Hematocrit 36.3 % (37.0-47.0); Hemoglobin 12.4 g/dl (12.0-16.0); Imm Gran Abs Auto 0.01 X10*3/uL (0.00-0.03); Imm Gran Pct Auto 0.2 % (0.0-0.4); Lymphocytes Percent Auto 34.5 % (20-40); Mean Corpuscular HGB Conc 34.2 g/dl (31.0-35.0); Mean Corpuscular Hemoglobin 32.7 pg (27.0-33.0); Mean Corpuscular Volume 95.8 fL (80.0-98.0); Mean Platelet Volume 10.5 fL (9.4-12.3); Monocytes Absolute Auto 0.6 X10*3/uL (0.1-1.2); Monocytes Percent Auto 9.9 % (2-11); Neutrophils Absolute Auto 3.1 x10*3/uL (2.0-8.3); Neutrophils Percent Auto 54.8 % (45-73); Platelet Count 220 X10*3/uL (160-400); Red Blood Count 3.79 X10*6/uL (4.20-5.50); White Blood Count 5.7 X10*3/uL (4.8-10.8)
[2022-12-24 07:52] LABS: COVID-19 Test Negative (Negative); IDNOW Serial# BCCEAD1C
--- NOTE | 2022-12-24 07:59 | ED.ABDPAIN ---
HPI - Abdominal Pain General Chief Complaint: Abdominal Pain Stated Complaint: Abd pain Time Seen by Provider: 12/24/22 07:35 Source: patient Mode of arrival: ambulatory Limitations: no limitations History of Present Illness HPI narrative: 22-year-old female came in for evaluation of abdominal pain. Patient with history of cannabis use disorder daily presented with epigastric discomfort and nausea with vomiting. Pain is localized to the epigastric area with no radiation worsening with food, patient had this symptoms in the past which stage think is related to bad food she could've eaten last night. No sick contacts, no recent travel, no recent use of antibiotic. Related Data Previous Rx's Medication Instructions Recorded docusate sodium 100 mg capsule 100 mg PO BID PRN constipation #30 11/11/21 (Colace) caps oxycodone 5 mg tablet 5 mg PO Q4H PRN pain (scale score 11/11/21 7-10) #24 tabs famotidine 20 mg tablet (Pepcid) 20 mg PO BID Reflux/acid pain #14 04/30/22 tabs ondansetron HCl 4 mg tablet 4 mg PO TID Nausea #10 tabs 04/30/22 ondansetron 4 mg disintegrating 4 mg PO Q6H PRN nausea and 10/09/22 tablet vomiting #7 tabs omeprazole magnesium 20 mg 20 mg PO BID 10 days #20 tabs 12/24/22 tablet,delayed release Allergies Allergy/AdvReac Type Severity Reaction Status Date / Time No Known Allergies Allergy Verified 01/16/21 07:18 Review of Systems Review of Systems All other systems are reviewed and are negative Constitutional: Reports as per HPI and Reports no additional constitutional complaints Eyes: Reports as per HPI and Reports no additional eye complaints Reports system reviewed and no additional complaints, except as documented Cardiovascular: Reports as per HPI and Reports no additional cardiovascular complaints Respiratory: Reports as per HPI and Reports no additional respiratory complaints Gastrointestinal: Reports as per HPI and Reports no additional gastrointestinal complaints Genitourinary: Reports no additional female genitourinary complaints Musculoskeletal: Reports no additional musculoskeletal complaints Skin/Breast: Reports system reviewed and no additional complaints, except as docu Psychiatric: Reports no additional psychiatric complaints Endocrine: Reports no additional endocrine complaints Hematologic/Lymphatic: Reports no additional hematologic/lymphatic complaints Allergic/Immunologic: Reports no additional allergic/immunologic complaints Reports system reviewed and no additional complaints, except as documented and Reports Abnormal speech present PMFSH Past Medical History Medical History Bipolar 1 disorder Schizophrenia Surgical History No pertinent past surgical history Family History Family History Father Medical history unknown Mother Medical history unknown Maternal Aunt Breast cancer Social History Social History Household Members: Significant Other Housing: Apartment Do you presently have visiting nurse or other home services: No Alcohol intake: never Patient Tobacco Use Status: Never used Tobacco Substance Use Type: Marijuana Advance Directives: No Advance Directives Information Provided: No service: No Current occupational status: disabled Physical Exam ED Vital Signs: Vital Signs - 24 hr 12/24/22 07:22 12/24/22 10:15 12/24/22 12:07 Temperature 97.9 F Pulse Rate 113 H 78 78 Respiratory Rate 16 16 16 Blood Pressure 151/82 H 149/88 H 136/65 Pulse Oximetry 97 97 98 Oxygen Delivery Method Room Air Room Air BMI result Body Mass Index 21.9 Vital signs have been reviewed as appeared to be correct. Blood pressure normal. Heart rate normal. Respiration rate normal. Temperature normal. Oxygen saturation normal. Appearance: Alert. Oriented X3. No acute distress. Head: Normal external exam. Normocephalic. Atraumatic. No [place] signs noted. No raccoon eyes noted Eyes: PERRLA. EOMI. Conjunctiva and sclera normal. Eyelids normal. ENT: TM's Normal. Pharynx normal. Uvula midline. Moist mucous membranes. No trismus noted. No drooling noted. No muffled voice noted. Neck: Normal inspection. Neck supple. FROM. No adenopathy. Thyroid Normal. No meningeal signs. No neck mass noted. CVS: Normal heart rate and rhythm. Heart sound normal. No murmurs noted. Pulses normal throughout. Respiratory: No respiratory distress. Painless inspiration. Breath sounds normal. No wheezes/rales/rhonchi noted. Chest nontender. No accessory muscle usage noted or decreased air movement noted. Abdomen: Soft, mild epigastric tenderness, no rebound tenderness, no guarding. Bowel sounds normal in all 4 quadrants. No distention noted. No organomegaly noted. No visible injury noted. Back: No CVA tenderness. Full range of motion noted. Skin: Skin warm and dry. Normal skin color. Normal skin turgor. No rashes/lesions/lacerations noted. Extremities: No lower extremity edema. Extremities exhibit normal range of motion. Extremities nontender. Neuro: Oriented X 3. Cranial nerve exam: II-XII are grossly intact No motor deficit. No sensory deficit. Reflexes normal. Course Course Course Narrative: 22-year-old female with daily marijuana use disorder came in with epigastric pain and vomiting. Improved with Pepcid and Zofran, patient is able to tolerate p.o. intake with no nausea or vomiting or abdominal pain. Patient was instructed to try to quit smoking marijuana and will start the patient on Prilosec with follow-up with GI. Medical Decision Making Differential Diagnosis Differential Diagnoses: The differential diagnosis associated with the presentation includes (Gastritis, marijuana induced vomiting, gallbladder disease.) Lab Data MDM Lab Attestation statement: I reviewed the patient's lab results. 12/24/22 07:29 12/24/22 07:29 Labs: Lab Results 12/24/22 12/24/22 12/24/22 Range/Units 07:29 07:29 07:29 WBC 5.7 (4.8-10.8) X10*3/uL RBC 3.79 L (4.20-5.50) X10*6/uL Hgb 12.4 (12.0-16.0) g/dl Hct 36.3 L (37.0-47.0) % MCV 95.8 (80.0-98.0) fL MCH 32.7 (27.0-33.0) pg MCHC 34.2 (31.0-35.0) g/dl RDW 13.0 (11.0-16.0) % Plt Count 220 D (160-400) X10*3/uL MPV 10.5 (9.4-12.3) fL Immature Gran % (Auto) 0.2 (0.0-0.4) % Neut % (Auto) 54.8 (45-73) % Lymph % (Auto) 34.5 (20-40) % [place] % (Auto) 9.9 (2-11) % Eos % (Auto) 0.2 (0-4) % Baso % (Auto) 0.4 (0-2) % Lymph # (Auto) 2.0 (1.2-4.9) X10*3/uL [place] # (Auto) 0.6 (0.1-1.2) X10*3/uL Eos # (Auto) 0.0 (0.0-0.4) X10*3/uL Baso # (Auto) 0.0 (0.0-0.2) X10*3/uL Abs Immat Gran (auto) 0.01 (0.00-0.03) X10*3/uL Absolute Neuts (auto) 3.1 (2.0-8.3) x10*3/uL Absolute Nucleated RBC 0.000 (0.0-0.012) X10*3/uL Nucleated RBC % (auto) 0.0 (0.0-0.2) /100WBC Sodium 143 (135-145) mmol/L Potassium 4.4 D (3.3-5.1) mmol/L Chloride 108 (96-108) mmol/L Carbon Dioxide 24 (22-29) mmol/L Anion Gap 15 (12-20) BUN 17 H (9-16) mg/dL Creatinine 0.79 (0.5-1.4) mg/dL Estim Creat Clear Calc 106.8 Estimated GFR > 60 Random Glucose 93 (60-115) mg/dL Calcium 9.2 (8.4-10.2) mg/dL Total Bilirubin 0.3 (0.0-1.0) mg/dL Direct Bilirubin < 0.2 (0.0-0.5) mg/dL AST 16 (5-31) U/L ALT < 6 (0-31) U/L Alkaline Phosphatase 52 (39-117) U/L Total Protein 7.2 (6.5-8.0) g/dL Albumin 4.5 (3.5-5.0) g/dL Lipase 26 (8-78) U/L Urine Color Urine Appearance Urine pH (5.0-9.0) Ur Specific [place] (1.005-1.025) Urine Protein (Neg-Trace) mg/dL Urine Glucose (UA) (Negative) mg/dL Urine Ketones (Negative) mg/dL Urine Blood (Negative) Urine Nitrite (Negative) Ur Leukocyte Esterase (Negative) Urine RBC (0-2) /HPF Urine WBC (0-5) /HPF Ur Squamous Epith Cells (0-2) /HPF Other Crystals Urine Bacteria (None Seen) Hyaline Casts (0-2) /LPF Urine Test (NEGATIVE) COVID-19 (CONNIE) Negative (Negative) COVID-19 Clin Com See Note 12/24/22 12/24/22 Range/Units 08:05 08:05 WBC (4.8-10.8) X10*3/uL RBC (4.20-5.50) X10*6/uL Hgb (12.0-16.0) g/dl Hct (37.0-47.0) % MCV (80.0-98.0) fL MCH (27.0-33.0) pg MCHC (31.0-35.0) g/dl RDW (11.0-16.0) % Plt Count (160-400) X10*3/uL MPV (9.4-12.3) fL Immature Gran % (Auto) (0.0-0.4) % Neut % (Auto) (45-73) % Lymph % (Auto) (20-40) % [place] % (Auto) (2-11) % Eos % (Auto) (0-4) % Baso % (Auto) (0-2) % Lymph # (Auto) (1.2-4.9) X10*3/uL [place] # (Auto) (0.1-1.2) X10*3/uL Eos # (Auto) (0.0-0.4) X10*3/uL Baso # (Auto) (0.0-0.2) X10*3/uL Abs Immat Gran (auto) (0.00-0.03) X10*3/uL Absolute Neuts (auto) (2.0-8.3) x10*3/uL Absolute Nucleated RBC (0.0-0.012) X10*3/uL Nucleated RBC % (auto) (0.0-0.2) /100WBC Sodium (135-145) mmol/L Potassium (3.3-5.1) mmol/L Chloride (96-108) mmol/L Carbon Dioxide (22-29) mmol/L Anion Gap (12-20) BUN (9-16) mg/dL Creatinine (0.5-1.4) mg/dL Estim Creat Clear Calc Estimated GFR Random Glucose (60-115) mg/dL Calcium (8.4-10.2) mg/dL Total Bilirubin (0.0-1.0) mg/dL Direct Bilirubin (0.0-0.5) mg/dL AST (5-31) U/L ALT (0-31) U/L Alkaline Phosphatase (39-117) U/L Total Protein (6.5-8.0) g/dL Albumin (3.5-5.0) g/dL Lipase (8-78) U/L Urine Color Yellow Urine Appearance Cloudy Urine pH 7.5 (5.0-9.0) Ur Specific [place] 1.015 (1.005-1.025) Urine Protein Negative (Neg-Trace) mg/dL Urine Glucose (UA) Negative (Negative) mg/dL Urine Ketones Negative (Negative) mg/dL Urine Blood Small (1+) H (Negative) Urine Nitrite Negative (Negative) Ur Leukocyte Esterase Negative (Negative) Urine RBC 0-2 (0-2) /HPF Urine WBC 0-5 (0-5) /HPF Ur Squamous Epith Cells 0-2 (0-2) /HPF Other Crystals Present Urine Bacteria None Seen (None Seen) Hyaline Casts 0-2 (0-2) /LPF Urine Test NEGATIVE (NEGATIVE) COVID-19 (CONNIE) (Negative) COVID-19 Clin Com Medications Administered Discontinued Medications Generic Name Dose Route Start Last Admin Trade Name Freq PRN Reason Stop Dose Admin Al Hydroxide/Mg Hydroxide 30 ml 12/24/22 07:49 12/24/22 08:48 Magnesium Hydrox/Alum Hydrox 30 Ml Oral.Susp PO 12/24/22 07:50 30 ml ONCE ONE Administration Famotidine 20 mg 12/24/22 07:49 12/24/22 08:48 Famotidine/Pf 20 Mg/2 Ml Vial IVPUSH 12/24/22 07:50 20 mg ONCE ONE Administration Ondansetron HCl 4 mg 12/24/22 07:34 12/24/22 07:39 Ondansetron Odt 4 Mg Tab.Rapdis TRANSLINGU 12/24/22 07:35 4 mg ONCE ONE Administration Ondansetron HCl 4 mg 12/24/22 07:49 12/24/22 08:48 Ondansetron Hcl 4 Mg/2 Ml Vial IVPUSH 12/24/22 07:50 4 mg ONCE ONE Administration Discharge Plan Discharge Clinical Impression: Gastritis Patient Disposition: Home, Self-Care Instructions: Gastritis (ED) Prescriptions: New omeprazole magnesium 20 mg tablet,delayed release (DR/EC) 20 mg PO BID 10 Days Qty: 20 0RF No Action ondansetron 4 mg tablet,disintegrating 4 mg PO Q6H PRN (Reason: nausea and vomiting) Qty: 7 0RF oxycodone 5 mg tablet 5 mg PO Q4H PRN (Reason: pain (scale score 7-10)) Qty: 24 0RF docusate sodium [Colace] 100 mg capsule 100 mg PO BID PRN (Reason: constipation) Qty: 30 0RF ondansetron HCl 4 mg tablet 4 mg PO TID Qty: 10 0RF famotidine [Pepcid] 20 mg tablet 20 mg PO BID Qty: 14 0RF Referrals: Nery Allison MD [Physician] - Stand Alone Forms: Work/School Release
[2022-12-24 08:06] LABS: Alanine Aminotransferase < 6 U/L (0-31); Albumin Level 4.5 g/dL (3.5-5.0); Alkaline Phosphatase 52 U/L (39-117); Anion Gap 15 (12-20); Aspartate Amino Transferase 16 U/L (5-31); Bilirubin Direct < 0.2 mg/dL (0.0-0.5); Bilirubin Total 0.3 mg/dL (0.0-1.0); Blood Urea Nitrogen 17 mg/dL (9-16); Calcium 9.2 mg/dL (8.4-10.2); Carbon Dioxide 24 mmol/L (22-29); Chloride 108 mmol/L (96-108); Creatinine Clr Calc Pharmacy 106.8; Estimated Glomerular Filt Rate > 60; Glucose Random 93 mg/dL (60-115); Lipase 26 U/L (8-78); Potassium 4.4 mmol/L (3.3-5.1); Sodium 143 mmol/L (135-145); Total Protein 7.2 g/dL (6.5-8.0)
[2022-12-24 08:16] LABS: Appearance Urine Cloudy; Color Urine Yellow; Glucose Urine UA Negative (Negative); Leukocyte Esterase Urine Negative (Negative); Nitrite Urine Negative (Negative); PH 7.5 (5.0-9.0); Specific Gravity - Urine 1.015 (1.005-1.025); UMIC TRIGGER UACC YES; Urine Blood Small (1+) (Negative); Urine Ketones Negative (Negative); Urine Protein Negative (Neg-Trace)
[2022-12-24 08:17] LABS: UPreg QC Valid YES; Urine Pregnancy NEGATIVE (NEGATIVE)
[2022-12-24 08:33] LABS: Bacteria Urine None Seen (None Seen); Hyaline Casts Urine 0-2 /LPF (0-2); Other Crystals Urine Present; RBC Urine 0-2 /HPF (0-2); Squamous Epithelial Cell Urine 0-2 /HPF (0-2); WBC Urine 0-5 /HPF (0-5)
[2022-12-24] MEDS: ondansetron HCL 4 MG/2 ML VIAL IVPUSH (08:48)
[2022-12-24] MEDS: Famotidine/PF 20 MG/2 ML VIAL IVPUSH (08:48)
[2022-12-24] MEDS: Magnesium Hydrox/Alum Hydrox 30 ML ORAL.SUSP PO (08:48)
[2022-12-24 10:15] VITALS: BP 149/88; PULSE 78; RESP 16; O2SAT 97
[2022-12-24 12:07] VITALS: BP 136/65; PULSE 78; RESP 16; O2SAT 98
--- NOTE | 2022-12-24 12:26 | PC.NURSE ---
[employer] AND [facility], STATES FEELING BETTER
== END 2022-12-24 13:01 | disposition home or self-care (01) ==
PROVIDERS: Emergency Provider Emergency Medicine
DX: K29.70 Gastritis, unspecified, without bleeding (principal); R10.13 Epigastric pain; F12.90 Cannabis use, unspecified, uncomplicated; Z79.899 Other long term (current) drug therapy
CPT/HCPCS: 36415; 80048; 80076; 81001; 81025; 83690; 85025; 87635; 96374; 96375; 99284; J2405

== ENCOUNTER 2023-01-24 08:52 | Emergency (ER) | payer OTHER, SELFPAY ==
--- NOTE | ~2023-01-24 | XR_ITS ---
EXAMINATION: XR CHEST CLINICAL INFORMATION: Nausea, vomiting and chills. COMPARISON: 12/24/2019 TECHNIQUE: Frontal view of the chest was obtained. FINDINGS: Lungs are well-inflated and clear. Trachea is midline in position. No interstitial disease, consolidation or mass. No pleural effusion or pneumothorax. Cardiac silhouette and pulmonary vessels are normal in size. The mediastinum and sarah have normal contour. The visualized bones, and upper abdomen, are unremarkable. XR/XR chest 1V IMPRESSION: No evidence of pneumonia. No acute cardiopulmonary abnormality.
[2023-01-24 08:55] VITALS: BP 141/82; PULSE 110; RESP 20; TEMP 36.6; O2SAT 99; BMI 21.9
--- NOTE | 2023-01-24 09:09 | ED_ITS ---
HPI - URI/Sore Throat General Chief Complaint: Upper Respiratory Symptoms Stated Complaint: Chest pain/Vomiting Time Seen by Provider: 01/24/23 09:05 Source: patient Mode of arrival: ambulatory History of Present Illness HPI Narrative: 22-year-old female with past medical history bipolar, schizophrenia, cyclical vomiting, presenting to the ED complaining body aches, myalgias, chills, productive cough, chest discomfort with cough, mild SOB, abdominal discomfort, nausea, vomiting, and diarrhea x 3 days. Denies fever, travel, sick contacts, dysuria /hematuria MD elicited complaint: cough Related Data Previous Rx's Medication Instructions Recorded docusate sodium 100 mg capsule 100 mg PO BID PRN constipation #30 11/11/21 (Colace) caps oxycodone 5 mg tablet 5 mg PO Q4H PRN pain (scale score 11/11/21 7-10) #24 tabs famotidine 20 mg tablet (Pepcid) 20 mg PO BID Reflux/acid pain #14 04/30/22 tabs ondansetron HCl 4 mg tablet 4 mg PO TID Nausea #10 tabs 04/30/22 ondansetron 4 mg disintegrating 4 mg PO Q6H PRN nausea and 10/09/22 tablet vomiting #7 tabs omeprazole magnesium 20 mg 20 mg PO BID 10 days #20 tabs 12/24/22 tablet,delayed release Allergies Allergy/AdvReac Type Severity Reaction Status Date / Time No Known Allergies Allergy Verified 01/24/23 08:55 Review of Systems Review of Systems: Constitutional: No Fever, + Chills, No Night Sweats, + Fatigue, + Malaise ENT/Mouth: No Ear Pain, No Nasal Congestion, No Sinus Pain, No Hoarseness, No sore throat, + Rhinorrhea, No Swallowing Difficulty Eyes: No Eye Pain, No Swelling, No Redness, No Vision Changes Cardiovascular: + Chest Pain with coughing, + SOB, No Dyspnea on Exertion, No Orthopnea, No Edema, No Palpitations Respiratory: + Cough, + Sputum, No Wheezing, No Dyspnea Gastrointestinal: + Nausea, + Vomiting, + Diarrhea, No Constipation, + Abdominal pain Genitourinary: No Dysuria, No Urinary Frequency, No Hematuria, No Flank Pain, No Urinary Flow Changes Musculoskeletal: No joint pain, + Myalgias, No Joint Swelling Skin: No Skin Lesions, No rash Neuro: No Weakness, No Numbness, No Dizziness, No Headache Yes all other systems are reviewed and are negative Constitutional: Constitutional: Reports as per [facility] Past Medical History Attestation statement: The following information was validated with the patient. Medical History Bipolar 1 disorder Schizophrenia Surgical History No pertinent past surgical history Family History Family History Father Medical history unknown Mother Medical history unknown Maternal Aunt Breast cancer Social History Social History Household Members: Significant Other Housing: Apartment Do you presently have visiting nurse or other home services: No Alcohol intake: never Patient Tobacco Use Status: Never used Tobacco Smoked in Last 30 Days: No Substance Use Type: Marijuana Substance Use Frequency: Daily Advance Directives: No Advance Directives Information Provided: No Patient : No service: No Current occupational status: disabled Physical Exam Vital Signs: Vital Signs: Last Vital Signs Temp 98 F 01/24/23 08:55 Pulse 97 01/24/23 10:35 Resp 20 01/24/23 10:35 BP 138/74 01/24/23 10:35 Pulse Ox 99 01/24/23 10:35 O2 Del Method Room Air 01/24/23 10:35 BMI result Body Mass Index 21.9 Const: General: cooperative, healthy appearing and no acute distress Orientation/consciousness: patient oriented x3 Limitations: no limitations HEENT: Head: Yes normal to inspection and Yes atraumatic Ears: hearing g rossly normal bilaterally General nose exam: Normal external nose present Face and sinus: Yes normal facial exam Eyes: General: appearance normal, both eyes and all related structures EOM: EOMs intact bilaterally Neck: Neck: Yes normal visual inspection and Yes no meningeal signs Resp: Effort & Inspection: normal respiratory effort and no respiratory dist ress Auscultation: clear to auscultation bilaterally, no crackles, no rales, no rhonchi and no wheezes Cardio: Rate: regular rate Heart sounds: S1 normal heart sound present and S2 normal heart sound present GI: Inspection: Yes normal to inspection Palpation (GI): Soft to palpation, nontender, no guarding and not rigid : General: Yes no CVA tenderness Back/Spine/Pelvis: Back: no CVA tenderness Skin: Rashes: no rashes Wounds: no wounds Neuro: General: patient oriented x3, tone normal and no meningeal signs Gait exam (Neuro): Normal gait present Extrem: General: Yes normal to inspection Course Course Course Narrative: - mild leukocytosis of 11.5 likely reactive from nausea/vomiting. Labs otherwise reassuring. - Tox screen positive for cocaine and THC XR chest 1V IMPRESSION: No evidence of pneumonia. No acute cardiopulmonary abnormality. -1242-- COVID-19 and influenza negative >> on re-evaluation patient reports symptomatic improvement, tolerated p.o. crackers and diaz skye. feel safe for discharge home at this time Results discussed with patient including worrisome signs and symptoms and strict return precautions, and when to return to the emergency department. They verbalized understanding and feel safe for discharge at this time. Medications Administered Discontinued Medications Generic Name Dose Route Start Last Admin Trade Name Trudy PRN Reason Stop Dose Admin Diphenhydramine HCl 50 mg 01/24/23 10:23 01/24/23 10:33 Diphenhydramine Hcl 50 Mg/Ml Vial IVPUSH 01/24/23 10:24 50 mg ONCE ONE Administration Famotidine 20 mg 01/24/23 09:12 01/24/23 09:49 Famotidine/Pf 20 Mg/2 Ml Vial IVPUSH 01/24/23 09:13 20 mg ONCE ONE Administration Sodium Chloride 1,000 mls @ 999 mls/hr 01/24/23 09:15 01/24/23 10:42 Ns IV 01/24/23 10:15 Infused .Q1H1M IGNACIO Infusion Sodium Chloride 1,000 mls @ 999 mls/hr 01/24/23 10:30 01/24/23 11:36 Ns IV 01/24/23 11:30 Infused .Q1H1M IGNACIO Infusion Metoclopramide HCl 10 mg 01/24/23 10:23 01/24/23 10:35 Metoclopramide Hcl 10 Mg/2 Ml Vial IVPUSH 01/24/23 10:24 10 mg ONCE ONE Administration Ondansetron HCl 4 mg 01/24/23 09:07 01/24/23 09:12 Ondansetron Odt 4 Mg Tab.Sancho SOTOU 01/24/23 09:08 4 mg ONCE ONE Administration Medical Decision Making Medical Decision Making [facility] Narrative: 22-year-old female with past medical history bipolar, schizophrenia, cyclical vomiting, presenting to the ED complaining body aches, myalgias, chills, p roductive cough, chest discomfort with cough, mild SOB, abdominal discomfort, nausea, vomiting, and diarrhea x 3 days. On exam tachycardic, appears uncomfortable, abdomen soft, nontender, no rebound or guarding, lungs CTA. Concern for viral syndrome vs cyclical vomiting vs dehydration vs gastroent eritis/gastritis. Lower suspicion for pneumonia, ACS, or PE. Lower suspicion for diverticulitis/ Appendicitis Plan: COVID/flu testing, labs, UA, IVF, symptomatic remedies, p.o. challenge Please refer to course for remaining clinical decision making, interpretation of labs/imaging results, and discussions with consultants and/or family members. Differential Diagnosis Differential Diagnoses: The differential diagnosis associated with the presentation includes As above Admission/Observation Consideration of admission/observation: Escalation of care including admission/observation considered Lab Data [facility] Lab Attestation statement: I reviewed the patient's lab results. 01/24/23 09:33 01/24/23 09:33 Labs: Lab Results 01/24/23 01/24/23 01/24/23 Range/Units 09:33 09:33 09:33 WBC 11.5 H (4.8-10.8) X10*3/uL RBC 4.20 (4.20-5.50) X10*6/uL Hgb 13.5 (12.0-16.0) g/dl Hct 39.4 (37.0-47.0) % MCV 93.8 (80.0-98.0) fL MCH 32.1 (27.0-33.0) pg MCHC 34.3 (31.0-35.0) g/dl RDW 12.3 (11.0-16.0) % Plt Count 245 (160-400) X10*3/uL MPV 10.4 (9.4-12.3) fL Immature Gran % (Auto) 0.3 (0.0-0.4) % Neut % (Auto) 72.9 (45-73) % Lymph % (Auto) 18.1 L (20-40) % [place] % (Auto) 7.6 (2-11) % Eos % (Auto) 0.8 (0-4) % Baso % (Auto) 0.3 (0-2) % Lymph # (Auto) 2.1 (1.2-4.9) X10*3/uL [place] # (Auto) 0.9 (0.1-1.2) X10*3/uL Eos # (Auto) 0.1 (0.0-0.4) X10*3/uL Baso # (Auto) 0.0 (0.0-0.2) X10*3/uL Abs Immat Gran (auto) 0.04 H (0.00-0.03) X10*3/uL Absolute Neuts (auto) 8.4 H (2.0-8.3) x10*3/uL Absolute Nucleated RBC 0.000 (0.0-0.012) X10*3/uL Nucleated RBC % (auto) 0.0 (0.0-0.2) /100WBC Sodium (135-145) mmol/L Potassium (3.3-5.1) mmol/L Chloride (96-108) mmol/L Carbon Dioxide (22-29) mmol/L Anion Gap (12-20) BUN (9-16) mg/dL Creatinine (0.5-1.4) mg/dL Estim Creat Clear Calc Estimated GFR Random Glucose (60-115) mg/dL Calcium (8.4-10.2) mg/dL Magnesium (1.6-2.6) mg/dL Total Bilirubin (0.0-1.0) mg/dL Direct Bilirubin (0.0-0.5) mg/dL AST (5-31) U/L ALT (0-31) U/L Alkaline Phosphatase (39-117) U/L Total Protein (6.5-8.0) g/dL Albumin (3.5-5.0) g/dL Lipase (8-78) U/L Urine Test (NEGATIVE) Urine Opiates Screen (Not Detect) Urine Fentanyl Screen (Not Detect) Ur Barbiturates Screen (Not Detect) Ur Phencyclidine Scrn (Not Detect) Ur Amphetamines Screen (Not Detect) U Benzodiazepines Scrn (Not Detect) Urine Cocaine Screen (Not Detect) U Marijuana (THC) Screen (Not Detect) COVID-19 (CONNIE) Negative (Negative) COVID-19 Clin Com See Note Influenza Type A (KAMRAN) Negative (Negative) Influenza Type B (KAMRAN) Negative (Negative) Influenza A & B Note See Note 01/24/23 01/24/23 01/24/23 Range/Units 09:33 10:38 10:38 WBC (4.8-10.8) X10*3/uL RBC (4.20-5.50) X10*6/uL Hgb (12.0-16.0) g/dl Hct (37.0-47.0) % MCV (80.0-98.0) fL MCH (27.0-33.0) pg MCHC (31.0-35.0) g/dl RDW (11.0-16.0) % Plt Count (160-400) X10*3/uL MPV (9.4-12.3) fL Immature Gran % (Auto) (0.0-0.4) % Neut % (Auto) (45-73) % Lymph % (Auto) (20-40) % [place] % (Auto) (2-11) % Eos % (Auto) (0-4) % Baso % (Auto) (0-2) % Lymph # (Auto) (1.2-4.9) X10*3/uL [place] # (Auto) (0.1-1.2) X10*3/uL Eos # (Auto) (0.0-0.4) X10*3/uL Baso # (Auto) (0.0-0.2) X10*3/uL Abs Immat Gran (auto) (0.00-0.03) X10*3/uL Absolute Neuts (auto) (2.0-8.3) x10*3/uL Absolute Nucleated RBC (0.0-0.012) X10*3/uL Nucleated RBC % (auto) (0.0-0.2) /100WBC Sodium 143 (135-145) mmol/L Potassium 3.8 (3.3-5.1) mmol/L Chloride 106 (96-108) mmol/L Carbon Dioxide 22 (22-29) mmol/L Anion Gap 19 (12-20) BUN 17 H (9-16) mg/dL Creatinine 0.85 (0.5-1.4) mg/dL Estim Creat Clear Calc 99.2 Estimated GFR > 60 Random Glucose 97 (60-115) mg/dL Calcium 9.0 (8.4-10.2) mg/dL Magnesium 2.0 (1.6-2.6) mg/dL Total Bilirubin 0.5 (0.0-1.0) mg/dL Direct Bilirubin < 0.2 (0.0-0.5) mg/dL AST 18 (5-31) U/L ALT < 6 (0-31) U/L Alkaline Phosphatase 54 (39-117) U/L Total Protein 7.5 (6.5-8.0) g/dL Albumin 4.6 (3.5-5.0) g/dL Lipase 13 (8-78) U/L Urine Test NEGATIVE (NEGATIVE) Urine Opiates Screen Not Detected (Not Detect) Urine Fentanyl Screen Not Detected (Not Detect) Ur Barbiturates Screen Not Detected (Not Detect) Ur Phencyclidine Scrn Not Detected (Not Detect) Ur Amphetamines Screen Not Detected (Not Detect) U Benzodiazepines Scrn Not Detected (Not Detect) Urine Cocaine Screen POSITIVE H (Not Detect) U Marijuana (THC) Screen POSITIVE H (Not Detect) COVID-19 (CONNIE) (Negative) COVID-19 Clin Com Influenza Type A (KAMRAN) (Negative) Influenza Type B (KAMRAN) (Negative) Influenza A & B Note Radiology Impression Discussion of test interpretation with radiology: I have reviewed the radio logist's reading. External Record Review External record reviewed: Inpatient record, Office record, Outpatient record, Prior outpatient labs, Prior outpatient radiology, Primary care record and Outside ED record Discharge Plan Discharge Clinical Impression: Cyclical vomiting Patient Disposition: Still a Patient Prescriptions: No Action ondansetron 4 mg tablet,disintegrating 4 mg PO Q6H PRN (Reason: nausea and vomiting) Qty: 7 0RF oxycodone 5 mg tablet 5 mg PO Q4H PRN (Reason: pain (scale score 7-10)) Qty: 24 0RF docusate sodium [Colace] 100 mg capsule 100 mg PO BID PRN (Reason: constipation) Qty: 30 0RF ondansetron HCl 4 mg tablet 4 mg PO TID Qty: 10 0RF famotidine [Pepcid] 20 mg tablet 20 mg PO BID Qty: 14 0RF omeprazole magnesium 20 mg tablet,delayed release (DR/EC) 20 mg PO BID 10 Days Qty: 20 0RF
[2023-01-24] MEDS: Ondansetron ODT 4 MG TAB.RAPDIS TRANSLINGU (09:12)
[2023-01-24] MEDS: 0.9 % Sodium Chloride 1,000 ML 999 ML IV ×2 (09:31→10:35)
[2023-01-24 09:37] LABS: MANUAL DIFF FLAG NO
[2023-01-24 09:41] LABS: Basophils Percent Auto 0.3 % (0-2); Eosinophils Absolute Auto 0.1 X10*3/uL (0.0-0.4); Eosinophils Percent Auto 0.8 % (0-4); Hematocrit 39.4 % (37.0-47.0); Hemoglobin 13.5 g/dl (12.0-16.0); Imm Gran Abs Auto 0.04 X10*3/uL (0.00-0.03); Imm Gran Pct Auto 0.3 % (0.0-0.4); Lymphocytes Absolute Auto 2.1 X10*3/uL (1.2-4.9); Lymphocytes Percent Auto 18.1 % (20-40); Mean Corpuscular HGB Conc 34.3 g/dl (31.0-35.0); Mean Corpuscular Hemoglobin 32.1 pg (27.0-33.0); Mean Corpuscular Volume 93.8 fL (80.0-98.0); Mean Platelet Volume 10.4 fL (9.4-12.3); Monocytes Absolute Auto 0.9 X10*3/uL (0.1-1.2); Monocytes Percent Auto 7.6 % (2-11); Neutrophils Absolute Auto 8.4 x10*3/uL (2.0-8.3); Neutrophils Percent Auto 72.9 % (45-73); Platelet Count 245 X10*3/uL (160-400); Red Cell Distribution Width 12.3 % (11.0-16.0); White Blood Count 11.5 X10*3/uL (4.8-10.8)
[2023-01-24] MEDS: Famotidine/PF 20 MG/2 ML VIAL IVPUSH (09:49)
[2023-01-24 09:51] VITALS: PULSE 98; O2SAT 99
[2023-01-24 09:56] LABS: COVID-19 Test Negative (Negative); IDNOW Serial# 6674DD1D
[2023-01-24 09:57] LABS: IDNOW Serial# 55D5AD1C; Influenza A Negative (Negative); Influenza B2 Negative (Negative)
[2023-01-24 10:07] LABS: Alanine Aminotransferase < 6 U/L (0-31); Albumin Level 4.6 g/dL (3.5-5.0); Alkaline Phosphatase 54 U/L (39-117); Anion Gap 19 (12-20); Aspartate Amino Transferase 18 U/L (5-31); Bilirubin Direct < 0.2 mg/dL (0.0-0.5); Bilirubin Total 0.5 mg/dL (0.0-1.0); Blood Urea Nitrogen 17 mg/dL (9-16); Carbon Dioxide 22 mmol/L (22-29); Chloride 106 mmol/L (96-108); Creatinine Clr Calc Pharmacy 99.2; Estimated Glomerular Filt Rate > 60; Glucose Random 97 mg/dL (60-115); Lipase 13 U/L (8-78); Potassium 3.8 mmol/L (3.3-5.1); Sodium 143 mmol/L (135-145); Total Protein 7.5 g/dL (6.5-8.0)
--- NOTE | 2023-01-24 10:18 | PC.NURSE ---
Pt continues to vomit s/p meds given, Nicolle JETT aware
[2023-01-24] MEDS: diphenhydrAMINE HCL 50 MG/ML VIAL IVPUSH (10:33)
[2023-01-24 10:35] VITALS: BP 138/74; PULSE 97; RESP 20; O2SAT 99
[2023-01-24] MEDS: Metoclopramide HCl 10 MG/2 ML VIAL IVPUSH (10:35)
[2023-01-24 10:59] LABS: Amphetamine Screen Urine Not Detected (Not Detect); Barbiturates, Urine Not Detected (Not Detect); Benzodiazepines Screen Urine Not Detected (Not Detect); Cannabinoid Screen Urine POSITIVE (Not Detect); Cocaine Screen Urine POSITIVE (Not Detect); Fentanyl, urine Not Detected (Not Detect); Opiate Screen Urine Not Detected (Not Detect); Phencyclidine Screen Urine Not Detected (Not Detect)
[2023-01-24 11:10] LABS: UPreg QC Valid YES; Urine Pregnancy NEGATIVE (NEGATIVE)
--- NOTE | 2023-01-24 12:01 | PC.NURSE ---
Pt sleeping s/p medication interventions, no acute vomiting at this time
[2023-01-24 13:05] VITALS: BP 106/61; PULSE 82; RESP 16
== END 2023-01-24 13:06 | disposition home or self-care (01) ==
PROVIDERS: Physician Assistant; Emergency Provider Emergency Medicine Emergency Medical Services
DX: R11.15 Cyclical vomiting syndrome unrelated to migraine (principal); R00.0 Tachycardia, unspecified; F12.90 Cannabis use, unspecified, uncomplicated; Z20.822 Contact with and (suspected) exposure to COVID-19; Z79.899 Other long term (current) drug therapy
CPT/HCPCS: 36415; 71045; 80048; 80076; 80307; 81025; 83690; 83735; 85025; 87502; 87635; 96361; 96374; 96375; 99284; J1200; J2765

== ENCOUNTER 2024-05-09 10:48 | Emergency (ER) | payer OTHER, SELFPAY ==
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
[2024-05-09 11:00] VITALS: BP 146/80; PULSE 74; RESP 20; TEMP 36.5; O2SAT 98; BMI 29.1
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
[2024-05-09 11:43] VITALS: BP 128/70; PULSE 75; RESP 19; TEMP 36.6
[2024-05-09] MEDS: Ibuprofen 600 MG TABLET PO (13:02)
[2024-05-09] MEDS: Acetaminophen 325 MG TABLET 975 MG PO (13:02)
[2024-05-09 14:47] VITALS: BP 128/70; PULSE 75; RESP 19; TEMP 36.6
== END 2024-05-09 14:48 | disposition home or self-care (01) ==
PROVIDERS: Emergency Provider Emergency Medicine Emergency Medical Services
DX: S80.212A Abrasion, left knee, initial encounter (principal); S06.9X9A Unspecified intracranial injury with loss of consciousness of unspecified duration, initial encounter; S63.501A Unspecified sprain of right wrist, initial encounter; S40.212A Abrasion of left shoulder, initial encounter; R51.9 Headache, unspecified; M25.532 Pain in left wrist; R07.89 Other chest pain; M25.512 Pain in left shoulder; M79.671 Pain in right foot; R53.1 Weakness; M25.522 Pain in left elbow; V29.91XA Electric (assisted) bicycle rider (driver) (passenger) injured in unspecified traffic accident, initial encounter; Y93.55 Activity, bike riding; Y92.89 Other specified places as the place of occurrence of the external cause; Y99.8 Other external cause status; Z79.899 Other long term (current) drug therapy
CPT/HCPCS: 29125; 70450; 71101; 73030; 73110; 73130; 73564; 99283; 99284

== ENCOUNTER 2024-08-20 10:21 | Outpatient (AMB) | payer OTHER, SELFPAY ==
[2024-08-20 10:24] VITALS: BP 126/76; PULSE 75; O2SAT 98; BMI 26.8
--- NOTE | 2024-08-20 10:24 | MHC.PC.OV ---
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 last pap was done over 5 years ago at [facility], patient is due for pap Allergies No Known Allergies Allergy (Verified 08/20/24 10:46) Medication List - Last Reconciled 08/20/24 by Tonja Trinh MD fluoxetine 10 mg PO DAILY hydroxyzine HCl 25 mg PO BEDTIME topiramate 25 mg PO DAILY trazodone 25 mg PO DAILY Tobacco use date assessed: 08/20/24 Dental Screening Dental Screen Date: 08/20/24 Did you have a dental visit in the last 12 months?: Yes Did you have a dental problem in the last 6 months where you did not have access to dental care?: No Was dental information given to patient?: Patient has dentist HPI 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 She has been diagnosed to have schizophrenia and bipolar 1 disorder, has alcohol use disorder and marijuana abuse as well as history of cocaine abuse, currently being followed by Psychiatry and sees a therapist. She is overdue for her cervical cancer screening, has no specific complaints at present time. [facility] Medical History (Updated 08/20/24 @ 11:22 by Tonja Trinh MD) Alcohol use disorder Marijuana abuse Cocaine abuse Schizophrenia Bipolar 1 disorder Surgical History History of laparoscopic appendectomy Family History Father Medical history unknown Mother Medical history unknown Maternal Aunt Breast cancer Social History (Updated 08/20/24 @ 11:12 by Tonja Trinh MD) Household Members: Significant Other Housing: Apartment Do you presently have visiting nurse or other home services: No Alcohol intake: current Alcohol intake frequency: a few times a week Patient Tobacco Use Status: Never used Tobacco e-Cigarette/Vaping Use: Never Used Substance Use Type: Crack/Cocaine and Marijuana service: No Current occupational status: disabled Sexual orientation: Lesbian/Garduno/Homosexual Cognitive needs: No Hearing needs: No Vision needs: No Questionnaire PHQ-9 Over the last 2 weeks, how often have you been bothered by any of the following problems? 1. Little interest or pleasure in doing things: nearly every day 2. Feeling down, depressed, or hopeless: nearly every day 3. Trouble falling or staying asleep, or sleeping too much: nearly every day 4. Feeling tired or having little energy: nearly every day 5. Poor appetite or overeating: nearly every day 6. Feeling bad about yourself - or that you are a failure or have let yourself or your family down: more than half the days 7. Trouble concentrating on things, such as reading the newspaper or watching television: nearly every day 8. Moving or speaking so slowly that other people could have noticed. Or the opposite - being so fidgety or restless that you have been moving around a lot more than usual: nearly every day 9. Thoughts that you would be better off or of hurting yourself in some way: not at all Total score: 23 Depression Screening Interpretation: Positive (Followed by psychiatry) Depression Screening Follow-up: Existing condition, In treatment and Community Mental Health Worker F/U Depression Screening Done: Yes Source: Developed by Drs. Octavio Page, Kacey Landers, Bijan Albert and colleagues, with an educational demond from [employer] Thrive Questionnaire Date Thrive assessed: 08/20/24 I am a: Patient What is your living situation today?: I have a steady place to live Within the past 12 months, did the food you bought not last and you didn't have the money to get more?: Sometimes True Within the past 12 months, did you worry whether your food would run out before you got money to buy more?: Sometimes True Do you have trouble paying for medicines?: No Do you have trouble getting transportation to medical appointments?: Yes Do you have trouble paying your heating and electricity bill?: Yes Do you have trouble taking care of your child, family member or friend?: No Do you have trouble with day-to-day activities such as bathing, preparing meals, shopping, managing finances, etc.?: Yes Are you currently unemployed and looking for a job?: Yes Are you interested in more education?: No Please select the resources that you would like help with: Food, Transportation, Utilities, Daily support and Job search/training THRIVE Score: 4 AUDIT C Alcohol Use Questionnaire (AUDIT-C) 1. How often do you have a drink containing alcohol?: 4 or more times a week 2. How many drinks containing alcohol do you have on a typical day when you are drinking?: 1 or 2 ( a gallon or a pint of [employer]) 3. How often do you have six or more drinks on one occasion?: Weekly Total Score: 7 Score Reviewed/Action Taken: Yes OWEN-7 AMB Questionnaire OWEN-7 Date OWEN - 7 assessed: 08/20/24 Feeling nervous, anxious, or on edge: 3 = Nearly every day Not being able to stop or control worryin = Nearly every day Worrying too much about different things: 3 = Nearly every day Trouble relaxin = Nearly every day Being so restless that it is hard to sit still: 3 = Nearly every day Becoming easily annoyed or irritable: 3 = Nearly every day Feeling afraid as if something awful might happen: 3 = Nearly every day Total OWEN-7 score (0-4 normal; 5-9 mild; 10-14 moderate; 15-21 severe): 21 Source: Developed by Drs. Octavio Page, Kacey Landers, Bijan Albert and colleagues, with an educational demond from [employer] OWEN-7 Assessment Billing OWEN-7 Assessment Tool: OWEN-7 Assessment 13662 Review of Systems Const Denies body aches, Denies fatigue, Denies fever(s), Denies headache(s) and Denies weakness Eyes Denies change in vision ENT Denies dizziness, Denies headache(s), Denies nasal congestion, Denies nasal discharge and Denies sore throat Card Denies chest pain, Denies lightheadedness, Denies palpitations and Denies dyspnea Resp Denies chest congestion, Denies cough, Denies dyspnea and Denies wheezing GI Denies abdominal pain, Denies change in bowel habits and Denies heartburn Denies hematuria, Denies urinary frequency, Denies dysuria and Denies urinary urgency Musc Reports no additional complaints Skin/Breast Denies breast pain, Denies breast mass, Denies lesions and Denies rash Neuro Denies dizziness, Denies headache(s) and Denies weakness Psych Reports as per HPI Endo Denies fatigue, Denies polydipsia, Denies polyuria and Denies palpitations Fish/Lymph Denies easy bruising Aller/Immun Denies seasonal rhinorrhea and Denies wheezing Physical exam (Primary Care) Vital Signs: Last Vital Signs Pulse 75 08/20/24 10:24 BP 126/76 08/20/24 10:24 Pulse Ox 98 08/20/24 10:24 Oxygen Delivery Method Room Air 08/20/24 10:24 BMI result Body Mass Index 26.8 Tobacco/Smoking Status: Tobacco use Status Tobacco use date assessed 08/20/24 08/20/24 10:26 Patient Tobacco Use Status Never used Tobacco 08/20/24 11:12 e-Cigarette/Vaping Use Never Used 08/20/24 11:12 PHQ-9: PHQ-9 Score PHQ-9: Total score 23 08/20/24 11:23 Depression Screening Interpretation: Positive (Followed by psychiatry) Depression Screening Follow-up: Existing condition, In treatment and Community Mental Health Worker F/U Thrive Assessment: Date of Thrive Assessment Date Thrive assessed 08/20/24 08/20/24 11:23 Const General: no acute distress and alert Orientation/consciousness: patient oriented x3 HENMT Head: Yes normocephalic Ears: external ears normal, TM's normal bilaterally and EAC's normal General nose exam: Normal external nose present and No nasal discharge present Face and sinus: Yes face symmetric Mouth: Normal oral and palatal mucosa present, lip normal, tongue normal, oropharynx normal and moist mucous membranes Eyes General: appearance normal, both eyes and all related structures Conjunctivae: conjunctivae normal Sclerae: sclerae normal Pupils: Equal, round and reactive pupils present EOM: EOMs intact bilaterally Neck Neck: Yes full ROM, Yes no lymphadenopathy and Yes supple Thyroid: Thyroid normal Resp Effort & Inspection: normal respiratory effort and able to speak in complete sentences Auscultation: clear to auscultation bilaterally Cardio Rate: regular rate Rhythm: regular rhythm Heart sounds: S1 normal heart sound present and S2 normal heart sound present GI Palpation (GI): Soft to palpation, nontender, no guarding and no masses Auscultation: normal bowel sounds General: Yes no CVA tenderness Back/Spine/Pelvis Back: no CVA tenderness and No back tenderness Skin General skin exam: no rashes or lesions noted and other (Tattoos in lower back) Neuro General: patient oriented x3, gait normal, moves all extremities, Normal light touch and pain sensation, no focal motor deficits and CN's II-XI intact bilaterally Cranial nerves: Yes Equal, round and reactive pupils present Cognition (Neuro): normal cognition Gait exam (Neuro): Normal gait present Motor exam (neuro): 5/5 motor strength present throughout Extrem General: Yes normal to inspection, Yes full ROM, Yes no joint enlargement, Yes no pedal edema and Yes normal gait Psych Appearance: grossly normal and well kempt Mental Status: mental status grossly normal Speech and movement: Normal speech and movement present Affect: normal affect Attitude: cooperative Thought process: Normal thought process present Thought content: Normal thought content present Coding Level of Care Code New Pt Prev Care 18-39yr([id number] Diagnoses Annual visit for general adult medical examination with abnormal findings Z00.01 Screening for malignant neoplasm of cervix Z12.4 Bipolar 1 disorder F31.9 Schizophrenia F20.9 Alcohol use disorder F10.90 Marijuana abuse F12.10 Cocaine abuse F14.10 Additional Codes OWEN-7 Assessment Billing - OWEN-7 Assessment Tool: OWEN-7 Assessment 41688 ([id number]) Assessment & Plan Assessment & Plan (1) Annual visit for general adult medical examination with abnormal findings: Code(s): Z00.01 - Encounter for general adult medical examination with abnormal findings Plan: Will check appropriate labs. Recommended dental visit every 6 months and regular eye exams, at least every 2 years. Take adequate calcium in diet and vitamin-D 3 at 2000 IU per cap once a day, in addition to weight-bearing exercises to help maintain good muscle tone and weight control. Instructed to do self-breast exam, and recommended to get yearly mammogram, starting at age 40. Declines getting any vaccines (2) Screening for malignant neoplasm of cervix: Code(s): Z12.4 - Encounter for screening for malignant neoplasm of cervix Plan: Referred to [facility] for her routine Pap and pelvic exam. (3) Bipolar 1 disorder: Comment: [facility] psychiatry Code(s): F31.9 - Bipolar disorder, unspecified Category: Medical Plan: Followed by psychiatry (4) Schizophrenia: Comment: Isaura Carr (psych) Code(s): F20.9 - Schizophrenia, unspecified Category: Medical Plan: Followed by psychiatry (5) Alcohol use disorder: Code(s): F10.90 - Alcohol use, unspecified, uncomplicated Category: Medical Plan: Strongly encouraged to stop alcohol intake, declines referral for AA count recommended to discuss with her psychiatrist about starting Campral to help with quitting alcohol intake (6) Marijuana abuse: Code(s): F12.10 - Cannabis abuse, uncomplicated Category: Medical Plan: Patient strongly encouraged to stop smoking marijuana (7) Cocaine abuse: Code(s): F14.10 - Cocaine abuse, uncomplicated Category: Medical Plan: Strongly advised to stop all illicit drug use Orders: Orders Complete Blood Count Auto Diff 08/20/24 F10.90 - Alcohol use, unspecified, uncomplicated, F12.10 - Cannabis abuse, uncomplicated, F14.10 - Cocaine abuse, uncomplicated, Z00.01 - Encounter for general adult medical examination with abnormal findings, Z13.1 - Encounter for screening for diabetes mellitus, Z13.220 - Encounter for screening for lipoid disorders Lipid Panel 08/20/24 F10.90 - Alcohol use, unspecified, uncomplicated, F12.10 - Cannabis abuse, uncomplicated, F14.10 - Cocaine abuse, uncomplicated, Z00.01 - Encounter for general adult medical examination with abnormal findings, Z13.1 - Encounter for screening for diabetes mellitus, Z13.220 - Encounter for screening for lipoid disorders TSH reflex Free T4 08/20/24 F10.90 - Alcohol use, unspecified, uncomplicated, F12.10 - Cannabis abuse, uncomplicated, F14.10 - Cocaine abuse, uncomplicated, Z00.01 - Encounter for general adult medical examination with abnormal findings, Z13.1 - Encounter for screening for diabetes mellitus, Z13.220 - Encounter for screening for lipoid disorders Comprehensive [place]. Panel Fast 08/20/24 F10.90 - Alcohol use, unspecified, uncomplicated, F12.10 - Cannabis abuse, uncomplicated, F14.10 - Cocaine abuse, uncomplicated, Z00.01 - Encounter for general adult medical examination with abnormal findings, Z13.1 - Encounter for screening for diabetes mellitus, Z13.220 - Encounter for screening for lipoid disorders Vitamin D 25-OH Total 08/20/24 F10.90 - Alcohol use, unspecified, uncomplicated, F12.10 - Cannabis abuse, uncomplicated, F14.10 - Cocaine abuse, uncomplicated, Z00.01 - Encounter for general adult medical examination with abnormal findings, Z13.1 - Encounter for screening for diabetes mellitus, Z13.220 - Encounter for screening for lipoid disorders 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[employer]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 Referral Z12.4 - Encounter for screening for malignant neoplasm of cervix Medications: Discontinued oxycodone Discontinued Reason: Patient no longer taking 5 mg PO Q4H PRN 24 tabs 0RF pain (scale score 7-10) famotidine (Pepcid) Discontinued Reason: Patient no longer taking 20 mg PO BID 14 tabs 0RF Reflux/acid pain ondansetron Discontinued Reason: Patient no longer taking 4 mg PO Q6H PRN 7 tabs 0RF nausea and vomiting ondansetron HCl Discontinued Reason: Patient no longer taking 4 mg PO TID 10 tabs 0RF Nausea famotidine (Pepcid) Discontinued Reason: Patient no longer taking 20 mg PO DAILY 14 tabs 0RF cephalexin Discontinued Reason: Patient Completed Course 500 mg PO Q6H 5 days 20 caps 0RF lidocaine 5% leave on most painful area for up to 12 hrs Discontinued Reason: Patient no longer taking 1 patch topical DAILY 15 ea 0RF ondansetron Discontinued Reason: Patient no longer taking 4 mg PO Q8H PRN 10 tabs 0RF nausea and vomiting ibuprofen Discontinued Reason: Patient no longer taking 600 mg PO Q8H PRN 14 tabs 0RF pain
== END 2024-08-20 11:25 | disposition home or self-care (01) ==
LOC: HO.HMCC 10:22
PROVIDERS: Visit Provider Internal Medicine
DX: Z00.00 Encounter for general adult medical examination without abnormal findings (principal); F31.9 Bipolar disorder, unspecified; F20.9 Schizophrenia, unspecified; F14.10 Cocaine abuse, uncomplicated; F10.90 Alcohol use, unspecified, uncomplicated; F12.10 Cannabis abuse, uncomplicated

== ENCOUNTER → 2024-08-20 10:21 | Outpatient (BNVA) | payer OTHER, SELFPAY | PROVIDERS: Visit Provider Internal Medicine | DX: Z00.01 Encounter for general adult medical examination with abnormal findings (principal); F31.9 Bipolar disorder, unspecified; F20.9 Schizophrenia, unspecified; F10.90 Alcohol use, unspecified, uncomplicated; F12.10 Cannabis abuse, uncomplicated; F14.10 Cocaine abuse, uncomplicated | CPT/HCPCS: 96127; 99385 ==

== ENCOUNTER 2025-05-05 09:42 | Emergency (ER) | payer OTHER, SELFPAY ==
[2025-05-05 09:49] VITALS: BP 133/74; PULSE 80; RESP 16; TEMP 36.2; O2SAT 95; BMI 30.8
--- NOTE | 2025-05-05 09:52 | ED_ITS ---
HPI - Skin/Abscess/Foreign Bdy General Chief complaint: Skin/Abscess/Foreign Body Stated complaint: spider bite at work Time Seen by Provider: 05/05/25 09:51 Source: patient Mode of arrival: ambulatory Limitations: no limitations History of Present Illness ED Provider: RYAN COLEY PA-C HPI narrative: 24 year old female with pmhx significant for polysubstance abuse, schizophrenia, bipolar 1 disorder presents to the ED today for evaluation of a spider bite that occurred 10-15 minutes prior to arrival in ED. She states that she was cleaning outside at work, clearing spider webs with a broom when a spider bit her. She did not see the spider bite her. Reports itching to the area. No other symptoms. Denies shortness of breath, difficulty swallowing, nausea or vomiting. No other complaints at present. Denies known allergy to spiders/insects. Related Data Home Medications ?Medication ?Instructions ?Recorded ?Confirmed fluoxetine 10 mg tablet 10 mg PO DAILY 08/20/24 hydroxyzine HCl 25 mg tablet 25 mg PO BEDTIME 08/20/24 topiramate 25 mg tablet 25 mg PO DAILY 08/20/24 trazodone 50 mg tablet 25 mg PO DAILY 08/20/24 Previous Rx's ?Medication ?Instructions ?Recorded diphenhydramine HCl 25 mg capsule 25 mg PO Q8H PRN itc ivana #14 caps 05/05/25 (Benadryl) Allergies Allergy/AdvReac Type Severity Reaction Status Date / Time No Known Allergies Allergy Verified 05/05/25 09:51 Review of Systems Review of Systems: Yes all other systems are reviewed and are negative PMFSH Past Medical History Attestation statement: The following information was validated with the patient. Source: old records reviewed and nursing notes reviewed Medical History Alcohol use disorder Marijuana abuse Cocaine abuse Schizophrenia Bipolar 1 disorder Surgical History History of laparoscopic appendectomy Family History Family History Father Medical history unknown Mother Medical history unknown Maternal Aunt Breast cancer Social History Social History Household Members: Significant Other Housing: Apartment Do you presently have visiting nurse or other home services: No Alcohol intake: current Alcohol intake frequency: a few times a week Patient Tobacco Use Status: Never used Tobacco e-Cigarette/Vaping Use: Never Used Substance Use Type: Crack/Cocaine and Marijuana Advance Directives: No Advance Directives Information Provided: No Do you have a plan to hurt others: No Plan service: No Current occupational status: disabled Sexual orientation: Lesbian/Garduno/Homosexual Cognitive needs: No Hearing needs: No Vision needs: No Physical Exam Vital Signs: Vital Signs: Last Vital Signs Temp 97.1 F 05/05/25 10:06 Pulse 80 05/05/25 10:06 Resp 16 05/05/25 10:06 BP 133/74 05/05/25 10:06 Pulse Ox 95 05/05/25 10:06 O2 Del Method Room Air 05/05/25 10:06 BMI result Body Mass Index 30.8 vital signs stable General: Well appearing, in no acute distress. Skin: Warm, dry, intact. No rashes or lesions. Head: Normocephalic, atraumatic. EENT: Hearing is intact b/l. Conjunctiva clear. PERRLA. EOM intact. Moist mucous membranes.? Neck: Supple without LAD Cardiac: Chest wall symmetric. RRR Lungs: Normal respiratory effort without accessory muscle use. CTA bilaterally, airway patent. Abdomen: soft, non-tender, non-distended. No rebound tenderness or guarding. Positive BS x4. Ext: +no obvious erythema/ swelling to left elbow. no joint swelling. no rash. no streaking. FROM intact to left elbow. 2+radial pulse intact. Neuro: AOx3. Normal speech. Ambulating with steady gait. Medical Decision Making Medical Decision Making MDM Narrative: 24 year old female with pmhx significant for polysubstance abuse, schizophrenia, bipolar 1 disorder presents to the ED today for evaluation of a spider bite that occurred 10-15 minutes prior to arrival in ED. vital signs stable. Afebrile. On exam, airway patent. no obvious erythema/ swelling to left elbow. no joint swelling. no rash. no streaking. FROM intact to left elbow. 2+radial pulse intact. Differential diagnosis includes insect bite. Unlikely cellulitis, septic joint, Lyme arthritis. No concern for allergic reaction, anaphylaxis. Will discharge patient home with Benadryl. No need for labs/imaging. Differential Diagnosis Differential Diagnoses: The differential diagnosis associated with the presentation includes As above Admission/Observation Not indicated Prescription Management I considered prescription management with: Other (Benadryl) Social Determinants Patient?s care significantly limited by Social Determinants of Health including: Other Social Determinant of Health Critical Care Time Critical Care Time Critical Care Time: No Discharge Plan Discharge Clinical Impression: Accidental spider bite Patient Disposition: Home, Self-Care Instructions: Insect Bite or Sting (ED) Additional Instructions: You were seen in the ED today for spider bite. You do not need any emergent medical attention at this time. I am sending Benadryl to your pharmacy which you can take as needed for itching. Return with any new or worsening symptoms. In the case of an emergency call 911. Prescriptions: New diphenhydramine HCl [Benadryl] 25 mg capsule 25 mg PO Q8H PRN (Reason: itching) Qty: 14 0RF No Action hydroxyzine HCl 25 mg tablet 25 mg PO BEDTIME trazodone 50 mg tablet 25 mg PO DAILY topiramate 25 mg tablet 25 mg PO DAILY fluoxetine 10 mg tablet 10 mg PO DAILY Referrals: Physician,None [Primary Care Provider, Medical] Stand Alone Forms: Work/School Release Interventions: ED Discharge Assessment Last Done: 05/05/25 10:06 Discharge Date/Time: 05/05/25 10:06 Print Language: Occitan
[2025-05-05 10:06] VITALS: BP 133/74; PULSE 80; RESP 16; TEMP 36.2; O2SAT 95
--- OUTSIDE RECORDS SUMMARY | 2025-05-05 10:41 | XMS_ITS | Encounter Summary ---
Author Organization [facility] Address [address] [place] [phone] Phone Care Team Providers Care Research Scientist Name Role Phone Mony Christy MD Primary Care Provider [phone] Encounter Details Date Type Department Care Team (Late st Contact Info) Description 08/14/2012 Documentation [facility] [facility] [address] [place] [address] Family Medicine, Physician [address], [place] [id number] Social History Tobacco Use Types Packs/Day Years Used Date Smoking Tobacco: Never Assessed Comments Unknown Sex and Gender Information Value Date Recorded Sex Assigned at Not on file Legal Sex Female 4:45 PM EDT Gender Identity Not on file Sexual Orientation Not on file documented as of this encounter Plan of Treatment Not on file documented as of this encounter Visit Diagnoses Not on filedocumented in this encounter Care Teams Research Scientist Relationship Specialty Start Date End Date Mony Christy MD [address] [place] [address] ANDREA Schrader [id number] PCP - General 06/02/17 04/13/23 documented as of this encounter
== END 2025-05-05 10:06 | disposition home or self-care (01) ==
PROVIDERS: Emergency Provider Emergency Medicine
DX: T63.301A Toxic effect of unspecified spider venom, accidental (unintentional), initial encounter (principal); Y92.9 Unspecified place or not applicable
CPT/HCPCS: 99282; 99283

== ENCOUNTER 2025-05-09 08:52 | Emergency (ER) | payer OTHER, SELFPAY ==
[2025-05-09 08:57] VITALS: BP 120/72; PULSE 88; RESP 16; TEMP 36.1; O2SAT 99; BMI 25.0
--- NOTE | 2025-05-09 09:37 | ED.ABDPAIN ---
HPI - Abdominal Pain General Chief Complaint: Abdominal Pain Stated Complaint: Abd pain, nausea, vomiting Time Seen by Provider: 05/09/25 09:02 Source: patient Mode of arrival: ambulatory Limitations: no limitations History of Present Illness ED Provider: isatu alva np HPI narrative: Patient is a 24-year-old female presents emergency department for evaluation. She reports that she awoke this morning at approximately 04:00 with epigastric burning abdominal pain associated nausea and 2 episodes of vomiting. She reports a history of similar symptoms in the past. Reporting it is ?an ongoing thing that I constantly deal with?. Denies fevers, chills, chest pain, hematemesis, diarrhea, constipation, hematochezia, melena, dysuria, urinary frequency, urinary urgency, urinary hesitancy, hematuria. denies pelvic pain or abnormal vaginal discharge. Denies concern for sexually transmitted infection. Denies concern for . Related Data Home Medications ?Medication ?Instructions ?Recorded ?Confirmed fluoxetine 10 mg tablet 10 mg PO DAILY 08/20/24 hydroxyzine HCl 25 mg tablet 25 mg PO BEDTIME 08/20/24 topiramate 25 mg tablet 25 mg PO DAILY 08/20/24 trazodone 50 mg tablet 25 mg PO DAILY 08/20/24 Previous Rx's ?Medication ?Instructions ?Recorded diphenhydramine HCl 25 mg capsule 25 mg PO Q8H PRN itching #14 caps 05/05/25 (Benadryl) ondansetron 4 mg disintegrating 4 mg PO Q8H PRN nausea and 05/09/25 tablet vomiting #7 tabs sucralfate 1 gram tablet 1 g PO BID #10 tabs 05/09/25 Allergies Allergy/AdvReac Type Severity Reaction Status Date / Time No Known Allergies Allergy Verified 05/09/25 08:58 Review of Systems Review of Systems Yes all other systems are reviewed and are negative PMFSH Past Medical History Attestation statement: The following information was validated with the patient. Source: old records reviewed Medical History Alcohol use disorder Marijuana abuse Cocaine abuse Schizophrenia Bipolar 1 disorder Surgical History History of laparoscopic appendectomy Family History Family History Father Medical history unknown Mother Medical history unknown Maternal Aunt Breast cancer Social History Social History Household Members: Significant Other Housing: Apartment Do you presently have visiting nurse or other home services: No Alcohol intake: current Alcohol intake frequency: a few times a week Patient Tobacco Use Status: Never used Tobacco e-Cigarette/Vaping Use: Never Used Substance Use Type: Crack/Cocaine and Marijuana Advance Directives: No Advance Directives Information Provided: Yes Do you have a plan to hurt others: No Plan service: No Current occupational status: disabled Sexual orientation: Lesbian/Garduno/Homosexual Cognitive needs: No Hearing needs: No Vision needs: No Physical Exam ED Vital Signs: Vital Signs - 24 hr 05/09/25 08:57 Temperature 97.0 F Pulse Rate 88 Respiratory Rate 16 Blood Pressure 120/72 Pulse Oximetry 99 Oxygen Delivery Method Room Air BMI result Body Mass Index 25.0 Appearance: Alert.?Oriented to person, place and time. No acute distress.?Normal affect.?? Neck: Normal inspection.? Neck supple.?? CVS: Heart sounds normal. Normal heart rate and rhythm.? Pulses normal.?? Respiratory: No respiratory distress.? Lung sounds clear to auscultation bilaterally?? Abdomen: Soft and non-tender. No rebound tenderness at McBurney's point. Negative psoas sign. Negative Rovsing sign. Negative Torres sign. No CVAT. Normoactive bowel sounds. No pulsatile mass.?? Skin: Skin warm and dry.? Normal skin color.? Extremities: No lower extremity edema.? Neuro: Moves all extremities spontaneously. Sensation intact bilaterally. Ambulates with normal steady gait. Course Reevaluation(s) Reevaluation #1: CBC is without leukocytosis anemia or thrombocytopenia. No electrolyte derangement. No CHIKI. LFTs and lipase are unremarkable. Urinalysis without evidence of infection or microscopic hematuria endorsing currently menstruating. Viral serologies negative. Tolerating oral intake without persistent nausea/vomiting. Pain has resolved. Suspect secondary to gastritis, stable for discharge home, we will send a short prescription for antiemetic. Reviewed dietary precautions. Medical Decision Making Medical Decision Making MDM Narrative: Patient is a 24-year-old female with past medical history bipolar disorder, schizophrenia, cyclical vomiting, alcohol use disorder, prior appendicitis who presents emergency department for evaluation of epigastric burning abdominal pain with associated nausea and vomiting as per HPI. Abdominal examination is benign, overall without signs of systemic toxicity found to be afebrile without tachycardia, no hypotension. Examination not consistent with acute abdomen, no peritoneal signs; no tenderness upon light palpation, no rebound tenderness, no guarding, no percussive tenderness. Concern at this time for vomiting syndrome, gastritis, GERD. Lower suspicion for acute cholecystitis, acute pancreatitis given exam findings. No recent URI symptoms to suggest pneumonia as etiology of this pain. No high-risk past medical history suggest myocardial infarction and she is without chest pain. Will obtain serum labs and urinalysis, trial management at this time with Zofran followed by GI cocktail; Maalox, lidocaine viscous, and famotidine. Differential Diagnosis Differential Diagnoses: The differential diagnosis associated with the presentation includes (See narrative above) Admission/Observation Consideration of admission/observation: Escalation of care including admission/observation considered (See narrative above ) Lab Data MDM Lab Attestation statement: I reviewed the patient's lab results. 05/09/25 09:43 05/09/25 09:43 Labs: Lab Results 05/09/25 Range/Units 09:43 WBC 8.6 (4.8-10.8) X10*3/uL RBC 4.16 L (4.20-5.50) X10*6/uL Hgb 14.3 (12.0-16.0) g/dl Hct 39.9 (37.0-47.0) % MCV 95.9 (80.0-98.0) fL MCH 34.4 H (27.0-33.0) pg MCHC 35.8 H (31.0-35.0) g/dl RDW 12.8 (11.0-16.0) % Plt Count 205 (160-400) X10*3/uL MPV 10.5 (9.4-12.3) fL Immature Gran % (Auto) 0.2 (0.0-0.4) % Neut % (Auto) 66.4 (45-73) % Lymph % (Auto) 19.3 L (20-40) % [place] % (Auto) 11.8 H (2-11) % Eos % (Auto) 1.9 (0-4) % Baso % (Auto) 0.4 (0-2) % Lymph # (Auto) 1.7 (1.2-4.9) X10*3/uL [place] # (Auto) 1.0 (0.1-1.2) X10*3/uL Eos # (Auto) 0.2 (0.0-0.4) X10*3/uL Baso # (Auto) 0.0 (0.0-0.2) X10*3/uL Abs Immat Gran (auto) 0.02 (0.00-0.03) X10*3/uL Absolute Neuts (auto) 5.7 (2.0-8.3) x10*3/uL Absolute Nucleated RBC 0.000 (0.0-0.012) X10*3/uL Nucleated RBC % (auto) 0.0 (0.0-0.2) /100WBC Sodium 140 (135-145) mmol/L Potassium 3.5 (3.3-5.1) mmol/L Chloride 106 (96-108) mmol/L Carbon Dioxide 24 (22-29) mmol/L Anion Gap 14 (12-20) BUN 10 (9-16) mg/dL Creatinine 0.76 (0.5-1.4) mg/dL Estim Creat Clear Calc 109.1 Estimated GFR > 60 Random Glucose 90 (60-115) mg/dL Calcium 9.1 (8.4-10.2) mg/dL Magnesium 1.9 (1.6-2.6) mg/dL Total Bilirubin 0.6 (0.0-1.0) mg/dL AST 20 (5-31) U/L ALT < 6 (0-31) U/L Alkaline Phosphatase 66 (39-117) U/L Total Protein 7.1 (6.5-8.0) g/dL Albumin 4.6 (3.5-5.0) g/dL Lipase 12 (8-78) U/L Urine Color Dark Yellow Urine Appearance Clear Urine pH 6.0 (5.0-9.0) Ur Specific [place] 1.025 (1.005-1.025) Urine Protein Trace (Neg-Trace) mg/dL Urine Glucose (UA) Negative (Negative) mg/dL Urine Ketones Trace (Negative) mg/dL Urine Blood Moderate (2+) H (Negative) Urine Nitrite Negative (Negative) Ur Leukocyte Esterase Negative (Negative) Urine RBC 3-5 H (0-2) /HPF Urine WBC 0-5 (0-5) /HPF Ur Squamous Epith Cells 3-5 (0-2) /HPF Urine Bacteria None Seen (None Seen) Hyaline Casts 0-2 (0-2) /LPF Urine Test NEGATIVE (NEGATIVE) Influenza Type A (PCR) NEGATIVE (Negative) Influenza Type B (PCR) NEGATIVE (Negative) RSV RNA Qual (PCR) NEGATIVE (Negative) SARS-CoV-2 RNA (RT-PCR) NEGATIVE (Negative) External Record Review External record reviewed: Outpatient record Chronic Conditions Patient?s care impacted by: Other (See narrative above) Medications Administered Discontinued Medications Generic Name Dose Route Start Last Admin Trade Name Freq PRN Reason Stop Dose Admin Al Hydroxide/Mg Hydroxide 30 ml 05/09/25 09:36 05/09/25 09:53 Magnesium Hydrox/Alum Hydrox 30 Ml Oral.Susp PO 05/09/25 09:37 30 ml ONCE ONE Administration Famotidine 20 mg 05/09/25 09:36 05/09/25 09:53 Famotidine 20 Mg Tablet PO 05/09/25 09:37 20 mg ONCE ONE Administration Lidocaine HCl 15 ml 05/09/25 09:36 05/09/25 09:53 Lidocaine Hcl Viscous 2 % 15 Ml Solution MUCOUS MEM 05/09/25 09:37 15 ml ONCE ONE Administration Ondansetron HCl 4 mg 05/09/25 09:36 05/09/25 09:53 Ondansetron Odt 4 Mg Tab.Rapdis TRANSLINGU 05/09/25 09:37 4 mg ONCE ONE Administration Discharge Plan Discharge Clinical Impression: Gastritis Patient Disposition: Home, Self-Care Instructions: Gastritis (ED) Additional Instructions: Avoid triggers such as fatty foods, spicy foods, tomatoes, onions, coffee, tea, chocolate, and alcohol. Remaining upright after meals for 1-2 hours. Avoid eating at least 3 hours before bedtime. Try sleeping on an incline if possible. Follow-up with the primary care doctor. Return to emergency department any new or worsening symptoms or concerns Prescriptions: New ondansetron 4 mg tablet,disintegrating 4 mg PO Q8H PRN (Reason: nausea and vomiting) Qty: 7 0RF sucralfate 1 gram tablet 1 g PO BID Qty: 10 0RF No Action diphenhydramine HCl [Benadryl] 25 mg capsule 25 mg PO Q8H PRN (Reason: itching) Qty: 14 0RF hydroxyzine HCl 25 mg tablet 25 mg PO BEDTIME trazodone 50 mg tablet 25 mg PO DAILY topiramate 25 mg tablet 25 mg PO DAILY fluoxetine 10 mg tablet 10 mg PO DAILY Referrals: Physician,None [Primary Care Provider, Medical] Print Language: Latvian
[2025-05-09 09:51] LABS: Hematocrit 39.9 % (37.0-47.0); Hemoglobin 14.3 g/dl (12.0-16.0); Imm Gran Abs Auto 0.02 X10*3/uL (0.00-0.03); Imm Gran Pct Auto 0.2 % (0.0-0.4); Lymphocytes Absolute Auto 1.7 X10*3/uL (1.2-4.9); MANUAL DIFF FLAG NO; Mean Corpuscular HGB Conc 35.8 g/dl (31.0-35.0); Mean Corpuscular Hemoglobin 34.4 pg (27.0-33.0); Mean Corpuscular Volume 95.9 fL (80.0-98.0); NRBC Abs Auto 0.000 X10*3/uL (0.0-0.012); NRBC Pct Auto 0.0 /100WBC (0.0-0.2); Platelet Count 205 X10*3/uL (160-400); Red Blood Count 4.16 X10*6/uL (4.20-5.50); White Blood Count 8.6 X10*3/uL (4.8-10.8)
[2025-05-09 09:52] LABS: Appearance Urine Clear; Glucose Urine UA Negative (Negative); PH 6.0 (5.0-9.0); Specific Gravity - Urine 1.025 (1.005-1.025); UMIC TRIGGER UACC YES
[2025-05-09] MEDS: Lidocaine HCl Viscous 2 % 15 ML SOLUTION MUCOUS MEM (09:53)
[2025-05-09] MEDS: Magnesium Hydrox/Alum Hydrox 30 ML ORAL.SUSP PO (09:53)
[2025-05-09 09:54] LABS: UPreg QC Valid YES
[2025-05-09 10:06] LABS: Alanine Aminotransferase < 6 U/L (0-31); Albumin Level 4.6 g/dL (3.5-5.0); Alkaline Phosphatase 66 U/L (39-117); Anion Gap 14 (12-20); Aspartate Amino Transferase 20 U/L (5-31); Blood Urea Nitrogen 10 mg/dL (9-16); Calcium 9.1 mg/dL (8.4-10.2); Carbon Dioxide 24 mmol/L (22-29); Chloride 106 mmol/L (96-108); Creatinine Clr Calc Pharmacy 109.1; Estimated Glomerular Filt Rate > 60; Lipase 12 U/L (8-78); Magnesium 1.9 mg/dL (1.6-2.6); Potassium 3.5 mmol/L (3.3-5.1); Sodium 140 mmol/L (135-145); Total Protein 7.1 g/dL (6.5-8.0)
[2025-05-09 10:29] LABS: Resp Syncy Virus RNA Qual PCR NEGATIVE (Negative); SARS COV2 PCR INHOUSE NEGATIVE (Negative)
[2025-05-09 12:00] VITALS: BP 114/70; PULSE 94; RESP 16; TEMP 36.8; O2SAT 99
[2025-05-09 13:07] VITALS: BP 114/70; PULSE 94; RESP 16; TEMP 36.8; O2SAT 99
== END 2025-05-09 13:07 | disposition home or self-care (01) ==
PROVIDERS: Nurse Practitioner Family; Emergency Provider Emergency Medicine
DX: K29.60 Other gastritis without bleeding (principal); R10.13 Epigastric pain; Z03.818 Encounter for observation for suspected exposure to other biological agents ruled out; F31.9 Bipolar disorder, unspecified; F20.9 Schizophrenia, unspecified; F12.10 Cannabis abuse, uncomplicated; F14.10 Cocaine abuse, uncomplicated; Z79.899 Other long term (current) drug therapy
CPT/HCPCS: 80053; 81001; 81025; 83690; 83735; 85025; 87637; 99283